=== PATIENT | female | born 1970 | race Caucasian/White ===

== ENCOUNTER 2019-03-31 15:50 | Outpatient (CLI) | payer OTHER, SELFPAY ==
--- NOTE | ~2019-03-31 | MM_ITS ---
EXAMINATION: MM screening ulices BI w jasmina HISTORY: Screening mammogram TECHNIQUE: Craniocaudal and mediolateral oblique 3-D tomosynthesis images were obtained and synthetic 2-D images were generated. CAD analysis was submitted and interpreted. COMPARISON: No prior mammogram is available for comparison at this institution. BREAST PARENCHYMAL COMPOSITION: There are scattered areas of fibroglandular density. FINDINGS: Status post bilateral augmentation mammoplasty There is no evidence of suspicious mass, dante cification, or architectural distortion to suggest malignancy in either breast.. IMPRESSION: 1. No mammographic evidence of malignancy. 2. Recommend routine screening mammography in one year. BI-RADS Category 1: Negative Reviewed, dictated and finalized at location A. ING SALES LEADER
== END 2019-03-31 15:51 | disposition home or self-care (01) ==
LOC: ANHIMG 15:55
PROVIDERS: PCP Family Medicine; Visit Provider Family Medicine
DX: Z12.31 Encounter for screening mammogram for malignant neoplasm of breast (principal)
CPT/HCPCS: 77063; 77067

== ENCOUNTER 2019-09-19 07:44 | Outpatient (CLI) | payer OTHER, SELFPAY ==
--- NOTE | 2019-09-19 09:00 | EST_ITS ---
Patient Info Name: Carmen Sims Age: 49 years : 1970 Gender: Female Ht: 64 in Wt: 239 lbs BSA: 2.27 m2 HR: 66 bpm BP: 113 / 78 mmHg Heart Rhythm: Sinus Rhythm Technical Quality: Excellent Exam Date: 09/19/2019 9:11 AM Exam Location: [facility], [place] Patient Status: Outpatient Admit Date: 09/19/2019 Staff Ordering Physician: Ayad Turner MD Attending Provider: Ayad Turner MD Exercise Technologist: Alisha Whiting CRT Exercise Physician: Donna Mitchell CEP Exam Type: CA stress hakeem w NM Study Info Indications AbnormalEKG - A nuclear stress test was performed. Summary 1. 1. Abnormal lexiscan stress test for ischemic ST changes by ECG criteria. 2. 2. Stable hemodynamics throughout the test. 3. 3. Nuclear scan to follow and will be reported separately. Please correlate with it. Protocol: LEXISCAN Stress ECG Details Stage: REST Duration (min): 1 min : 26 sec HR (bpm): 65 SBP (mmHg): 113 DBP (mmHg): 78 Stage: REST Duration (min): 5 min : 7 sec HR (bpm): 63 SBP (mmHg): 113 DBP (mmHg): 78 Stage: STAGE 1 Duration (min): 0 min : 21 sec HR (bpm): 67 SBP (mmHg): 113 DBP (mmHg): 78 Stage: RECOVERY Duration (min): 0 min : 38 sec HR (bpm): 103 SBP (mmHg): 113 DBP (mmHg): 78 Stage: RECOVERY Duration (min): 1 min : 38 sec HR (bpm): 94 SBP (mmHg): 138 DBP (mmHg): 78 Stage: RECOVERY Duration (min): 2 min : 38 sec HR (bpm): 94 SBP (mmHg): 135 DBP (mmHg): 80 Stage: RECOVERY Duration (min): 3 min : 38 sec HR (bpm): 88 SBP (mmHg): 140 DBP (mmHg): 78 Stage: RECOVERY Duration (min): 4 min : 38 sec HR (bpm): 81 SBP (mmHg): 140 DBP (mmHg): 78 Stage: RECOVERY Duration (min): 5 min : 38 sec HR (bpm): 79 SBP (mmHg): 129 DBP (mmHg): 82 Stage: RECOVERY Duration (min): 6 min : 3 sec HR (bpm): 79 SBP (mmHg): 127 DBP (mmHg): 80 Rest HR: 63 bpm Peak HR: 103 bpm Rest Sys BP: 113 mmHg Peak Sys BP: 140 mmHg Max Pred HR: 173 bpm % Max Pred HR: 60 % Target HR: 147 bpm Max RPP: 14,420 bpm*mmHg Termination Reason: Completion of Protocol Cardiac Symptoms: Chest pain, Dyspnea Total Time: 0 min : 21 sec Rest Haywood BP: 78 mmHg Peak Haywood BP: 78 mmHg Total Dose: 0.4 mg Resting ECG Normal sinus rhythm with borderline T wave in ant/inf leads. Abnormal EKG. Stress ECG ST depression 1-2 mm in II, III, avF, V4-V6. Arrhythmias Occasional PVCs. None. Report Signatures
== END 2019-09-19 07:45 | disposition home or self-care (01) ==
PROVIDERS: PCP Family Medicine; Visit Provider Family Medicine
DX: R94.31 Abnormal electrocardiogram [ECG] [EKG] (principal)
CPT/HCPCS: 78452; 93017; A9502; J2785

== ENCOUNTER 2019-09-27 07:37 | Outpatient (CLI) | payer OTHER, SELFPAY ==
--- NOTE | 2019-09-27 07:44 | ECHO_ITS ---
Patient Info Name: Carmen Sims Age: 49 years : 1970 Gender: Female Ht: 62 in Wt: 240 lbs BSA: 2.25 m2 HR: 73 bpm BP: 128 / 90 mmHg Technical Quality: Good Exam Date: 09/27/2019 8:09 AM Exam Location: [facility] Patient Status: Outpatient Admit Date: 09/27/2019 Staff Ordering Physician: Brandon Wu DO Attending Provider: Brandon Wu DO Referring Physician: Bryce FONG; Exam Type: CA echo dop color flow w con Study Info Indications R06.00 - Dyspnea, unspecified Complete two-dimensional, color flow and Doppler transthoracic echocardiogram is performed with contrast to opacify the left ventricle and to improve the deliniation of the left ventricle endocardial borders. Contrast/Agitated Saline Contrast/Ag. Saline: Definity Amount: 1.00 ml Administered By: Jose Juan Madrid, RN New IV Access: Dorsum of Hand and Left Site Condition: IV removed Summary 1. Left ventricular chamber dimension is normal. 2. Definity contrast administered improved wall motion interpretation. 3. Left ventricular systolic function is normal, estimated at 55-60%. 4. The left ventricular diastolic function is grade II diastolic dysfunction. 5. E/e' 6 is not elevated. 6. Global longitudinal strain is abnormal at -14.4%. 7. Bowing of interatrial septum to right. No shunt noted by color doppler. 8. No pulmonary hypertension, estimated pulmonary arterial systolic pressure is 29 mmHg. Left Ventricle Definity contrast administered improved wall motion interpretation. Global longitudinal strain is abnormal at -14.4%. E/e' 6 is not elevated. Left ventricular chamber dimension is normal. Left ventricular systolic function is normal, estimated at 55-60%. The left ventricular diastolic function is grade II diastolic dysfunction. Right Ventricle Right ventricular chamber dimension is normal. Right ventricular systolic function is normal. Left Atria Left atrial chamber dimension is normal. Right Atria Right atrial chamber dimension is normal. Atrial Septum Bowing of interatrial septum to right. No shunt noted by color doppler. Aortic Valve The aortic valve is trileaflet. There is no aortic valve stenosis. There is no aortic valve regurgitation. Pulmonic Valve There is no pulmonic regurgitation. Mitral Valve There is no mitral valve stenosis. There is no mitral valve regurgitation. Tricuspid Valve There is no tricuspid valve regurgitation. No pulmonary hypertension, estimated pulmonary arterial systolic pressure is 29 mmHg. Pericardium/Pleural There is no pericardial effusion. Inferior Vena Cava Normal inferior vena cava with >50% collapse upon inspiration consistent with normal right atrial pressure, 5 mmHg. Aorta The aortic root size at the sinus of Valsalva is normal. Left Ventricular Outflow Tract Name Value Normal LVOT 2D LVOT Diameter 1.85 cm LVOT Doppler LVOT Peak Gradient 5 mmHg LVOT Mean Gradient 3 mmHg LVOT VTI 24.37 cm LVOT
== END 2019-09-27 07:38 | disposition home or self-care (01) ==
PROVIDERS: PCP Family Medicine; Visit Provider Internal Medicine Cardiovascular Disease
DX: R06.00 Dyspnea, unspecified (principal)
CPT/HCPCS: C8929

== ENCOUNTER 2019-10-03 00:41 | Outpatient (CLI) | payer OTHER, SELFPAY ==
[2019-10-03 20:23] LABS: SARS-CoV-2 RNA PCR Negative
== END 2019-10-03 00:42 | disposition home or self-care (01) ==
LOC: ANHCOVIDDT 00:42
PROVIDERS: PCP Family Medicine; Visit Provider Specialist
DX: Z01.812 Encounter for preprocedural laboratory examination (principal); Z20.828 Contact with and (suspected) exposure to other viral communicable diseases
CPT/HCPCS: 87635; C9803; U0003

== ENCOUNTER 2019-10-05 01:27 | Day surgery (SDC) | payer OTHER, SELFPAY ==
[2019-10-04 15:29] VITALS: BMI 44.3
[2019-10-05] VITALS (13 sets, daily range): BP systolic 111–132; BP diastolic 66–100; PULSE 51–82; RESP 14–16; TEMP 36.6; O2SAT 98–100
[2019-10-05 09:04] LABS: Basophils Percent Auto 0.3 % (0.2-1.2); Eosinophils Absolute Auto 0.2 K/mm3 (0-0.3); Eosinophils Percent Auto 3.1 % (0-4.4); Hematocrit 43.5 % (37.0-47.0); Hemoglobin 14.4 g/dL (12.0-15.0); Immature Granulocyte Absolute 0.02 K/mm3 (0.00-0.031); Immature Granulocyte Percent A 0.3 % (0-0.5); Lymphocytes Absolute Auto 1.45 K/mm3 (0.9-3.2); Lymphocytes Percent Auto 24.9 % (18.3-44.2); Mean Corpuscular HGB Conc 33.1 g/dl (32-36); Mean Corpuscular Hemoglobin 30.3 pg (26-34); Mean Corpuscular Volume 91.4 fl (80-100); Mean Platelet Volume 9.7 fl (7.4-10.4); Monocytes Absolute Auto 0.5 K/mm3 (0.1-0.6); Monocytes Percent Auto 8.2 % (2.6-8.5); Neutrophils Absolute Auto 3.7 K/mm3 (1.3-6.7); Neutrophils Percent Auto 63.2 % (45.5-73.1); Platelet Count Result 253 k/mm3 (150-375); Red Blood Count 4.76 M/mm3 (4.2-5.4); Red Cell Distribution Width 13.4 % (11.5-14.5); White Blood Count 5.8 K/mm3 (4.5-10.0)
[2019-10-05 09:14] LABS: Prothrombin Time 12.8 Seconds (11.1-14.7)
[2019-10-05 09:16] LABS: Anion Gap 9 mmol/L (8-16); Blood Urea Nitrogen 12 mg/dL (7-17); Calcium 8.9 mg/dL (8.4-10.2); Carbon Dioxide 28 mmol/L (22-30); Chloride 102 mmol/L (98-107); Estimated CRCL calculation 100 ml/min; Estimated Glomerular Filt Rate > 60; Glucose 99 mg/dL (65-105); Sodium 139 mmol/L (137-145)
--- NOTE | 2019-10-05 12:45 | P.PCNCC_ITS ---
Cardiac Cath Procedure Note Date of procedure:: 10/05/19 Performing physician:: Tremaine Peterson MD Indication:: atypical chest pain abnormal stress test morbid obesity Brief clinical history:: 49-year-old woman who is morbidly obese with BMI of 44.4. She has been having chest discomfort intermittently for about 10 weeks. Stress testing was electrocardiographically abnormal prompting the recommendation for an angiogram. Procedure Procedure performed:: Left heart catheterization with left ventriculography and coronary angiography Sedation/Medication given:: fentanyl 50 mg Versed 2 mg case start time 12:27 p.m. case end time 12:41 p.m. sedation provided by Christine Shipman RN, trained observer Access site:: right femoral artery Estimated blood loss:: 15-20 cc Procedure note:: patient was brought to the cardiac catheterization lab in postabsorptive state the right femoral triangle was prepared in the normal fashion anesthesia was provided with 1% lidocaine infiltrated locally. Using the modified Seldinger technique a 5 Mauritian sheath was placed into the right femoral artery after this left heart catheterization was carried out. A 5 Mauritian pigtail catheter was used to measure left-sided hemodynamics and injected LV g in the BALTAZAR projection. After this I withdrew the pigtail catheter and injected the left coronary artery with standard 5 Mauritian FL4 catheter. After this the right coronary was injected using a standard 5 Mauritian JR4 catheter. The cineangiograms were reviewed. An angiogram was done of the femoral artery through the sheath and it was determined we would pull the sheath manually. She left the medical laboratory technician in stable condition there were no signs of any procedural complications and no evidence of any groin hematoma. Findings:: Hemodynamics: Central aortic pressure is 18/62 left ventricle 118/0 end-diastolic pressure 6. There is no gradient upon pullback across the aortic valve. The left ventricle is normal in size all segments contract adequately the global ejection fraction is visually estimated to be 50% the left main coronary is widely patent the LAD is a large caliber vessel extending down to around the apex the LAD and its branches are smooth and angiographically normal the circumflex is a moderate caliber artery giving rise to the marginal branches and a posterior branch. The circumflex system is smooth and angiographically normal. The right coronary artery is large in caliber dominant to the posterior circulation. Right coronary bifurcates early in the 2nd portion. There was some catheter-induced spasm in the proximal RCA other than this the artery was angiographically normal. Upon with backing off of the catheter the area of spasm was immediately resolved. Conclusion:: 1. Right coronary dominant circulation with no angiographic evidence of coronary disease 2. preserved left ventricular systolic function 3. false-positive stress test Tremaine Peterson MD [facility]
--- NOTE | 2019-10-05 13:15 | SUR.PHASEII ---
1313-5F sheath pulled by Kike Orourke RN. Groin soft and non-tender, no evidence of bleeding or hematoma noted. Will continue to monitor.
[2019-10-05] MEDS: FAMOTIDINE 20 MG TABLET 40 MG PO (15:31)
[2019-10-05] MEDS: PANTOPRAZOLE 40 MG TABLET PO (15:32)
--- NOTE | 2019-10-05 18:54 | SUR.PHASEII ---
1745-pt up to the chair. No distress noted. Groin soft and non-tender, no evidence of bleeding or hematoma noted before or after rising. Strong right pedal pulse noted. Will continue to monitor.
--- NOTE | 2019-10-05 18:55 | SUR.PHASEII ---
1845-pt given D/C orders and instructions. Questions answered and verbalized understanding. AOx4. Groin soft and non-tender, no evidence of bleeding or hematoma noted. Strong right pedal pulses noted. Taken via wheelchair to waiting vehicle. No evidence of distress noted or verbalized at time of departure.
== END 2019-10-05 18:45 | disposition home or self-care (01) ==
PROVIDERS: PCP Family Medicine; Visit Provider Specialist
PROC: 4A023N7 Measurement of Cardiac Sampling and Pressure, Left Heart, Percutaneous Approach (ICD-10-PCS; CPT 93452; principal; 2019-10-05 10:00)
DX: Z01.810 Encounter for preprocedural cardiovascular examination (principal); R94.39 Abnormal result of other cardiovascular function study; R07.89 Other chest pain; R06.00 Dyspnea, unspecified; E66.01 Morbid (severe) obesity due to excess calories; Z68.41 Body mass index [BMI] 40.0-44.9, adult
CPT/HCPCS: 36415; 80048; 85025; 85610; 93458; A9270; C1887; C1894; J0461; J1644; J2250; J3010; J7040

== ENCOUNTER 2019-11-01 10:00 | Emergency (ER) | payer OTHER, SELFPAY ==
--- NOTE | ~2019-11-01 | XR_ITS ---
EXAMINATION: XR chest 2V 11/01/2019 11:18 INDICATION: Chest pain PROCEDURE: 2 view chest COMPARISON: 06/13/2010 FINDINGS: The lungs are clear. The cardiomediastinal silhouette is within normal limits. There are no pleural effusions. There is no pneumothorax suspected. IMPRESSION: 1: NO ACUTE CARDIOPULMONARY DISEASE. Reviewed, dictated and finalized at location B.
--- NOTE | ~2019-11-01 | US_ITS ---
EXAMINATION: US arterial duplex LE RT EXAM DATE: 11/01/2019 11:18 INDICATION: Right groin pain, states recent catheterization. TECHNIQUE: Multiple grayscale and Doppler images of the right inguinal artery and vein were obtained (by a technologist who performed the scan) and subsequently reviewed. Correlation is made to venous u ltrasound same date. FINDINGS: Scanning in the right inguinal region demonstrates normal triphasic high resistance, femoral arterial and femoral arterial Doppler waveforms. There is no pseudoaneurysm. Normal venous Doppler signal. Th ere is a small right inguinal lymph node measuring 1.8 x 0.5 x 0.9 cm. IMPRESSION: 1. Unremarkable right groin ultrasound exam. Reviewed, dictated and finalized at location A.
--- NOTE | ~2019-11-01 | US_ITS ---
EXAMINATION: US venous doppler LE RT EXAM DATE: 11/01/2019 11:18 INDICATION: Right leg pain after catheterization. TECHNIQUE: Multiple grayscale, color flow and Doppler images of the right lower extremity deep venous system were obtained and reviewed. There is no prior study for comparison. FINDINGS: The right common femoral, femoral and profunda veins demonstrate normal color flow, respira tory variation, augmentation and compressibility. Compressibility, color flow confirmed within the r ight popliteal, posterior tibial, peroneal, and greater saphenous veins. IMPRESSION: 1. No right lower extremity deep venous thrombosis. Reviewed, dictated and finalized at location A.
[2019-11-01 10:10] VITALS: BP 150/60; PULSE 111; RESP 22; TEMP 38.1; O2SAT 97
--- NOTE | 2019-11-01 10:14 | ED.EXTPRO ---
HPI - Extremity Problem General Chief complaint: Shortness of Breath/Dyspnea Stated complaint: SOB Pain in groin Time Seen by Provider: 11/01/19 10:30 Source: patient Mode of arrival: ambulatory Limitations: no limitations History of Present Illness HPI Narrative: 49-year-old woman comes in today complaining chest pain and shortness of breath. She states that she has been being evaluated lately for upcoming hiatal hernia surgery which included a stress test and a catheterization. He states that the chest discomfort shortness breath got worse in the last day or 2 and she is also complaining of some pain in her right groin. She noticed a lump there. She underwent cardiac catheterization 1 month ago After which she was cleared for surgery. She states that shortness of breath is worse with exertion but the chest pain is not. She denies nausea, lightheadedness, vomiting, syncope, cough, cold symptoms, and sick contacts. She states that she recently had a negative [id number]-[id number]-2 test. She takes 40 of pantoprazole twice daily for her chest symptoms. MD Complaint: extremity pain Onset (ago): day(s) Pain Consistency: constant Location: right and lower extremity (groin) Radiation: none Exacerbating factors: walking and palpation Associated symptoms: chest pain and shortness of breath Context: recent surgery/procedure Related Data Home Medications Medication Instructions Recorded Confirmed calcium carbonate 500 mg calcium 500 mg PO BID 09/21/19 11/01/19 (1,250 mg) chewable tablet cyanocobalamin (vitamin B-12) 500 500 mcg NASAL WEEKLY 09/21/19 11/01/19 mcg/spray nasal spray ferrous fumarate 325 mg (106 mg 325 mg PO BID 09/21/19 11/01/19 iron) tablet multivitamin 1 tablet PO BID 09/21/19 11/01/19 pantoprazole 40 mg tablet,delayed 40 mg PO BID tablet 09/21/19 11/01/19 release Allergies Allergy/AdvReac Type Severity Reaction Status Date / Time amoxicillin [From Augmentin] AdvReac Severe hives, Verified 11/01/19 10:29 swollen lip and tongue clavulanic acid AdvReac Severe hives, Verified 11/01/19 10:29 [From Augmentin] swollen lip and tongue erythromycin base AdvReac Severe hives, Verified 11/01/19 10:29 [From Erythrocin] vomiting morphine AdvReac Severe Unknown Verified 11/01/19 10:29 Review of Systems Constitutional: Constitutional: Denies chills, Reports fatigue and Denies fever(s) ENT: Denies dysphagia, Denies nasal congestion and Denies sore throat Cardiovascular: Cardiovascular: Denies chest pain and Denies radiating jaw, neck or arm pain Respiratory: Respiratory: Denies cough, Denies dyspnea and Denies wheezing Gastrointestinal: Gastrointestinal: Denies abdominal pain, Denies diarrhea, Denies nausea and Denies vomiting Genitourinary: Genitourinary: Denies nocturia and Denies dysuria Integumentary/Breasts: Skin/Breast: Denies pruritus, Denies erythema and Denies rash Neurologic: Denies vertigo, Denies dizziness, Denies syncope, Denies focal weakness and Denies numbness Hematologic/Lymphatic: Hematologic/Lymphatic: Denies easy bleeding and Denies easy bruising Allergic/Immunologic: Allergic/Immunologic: Denies lip swelling, Denies throat swelling and Denies tongue swelling PMFSH Surgical History Surgical History H/O: hysterectomy Hx of breast augmentation S/P total knee arthroplasty Status post gastric banding Social History Social History Smoking status: Never smoker Alcohol intake: current Substance use: never Additional living arrangements comments: lives with fiancee Gender identity (if verbalized by the patient): Female Spiritual care concerns: No Exam Const: General: healthy appearing and alert Nutritional Appearance: obese Orientation/consciousness: patient oriented x3 Limitations: no limitations Other: Moderate acute distress
--- NOTE | 2019-11-01 10:16 | ECG_ITS ---
Measurements Intervals [place] Rate: 94 P: 72 TX: 163 QRS: 79 QRSD: 87 T: 45 QT: 354 QTc: 443 Interpretive Statements SINUS RHYTHM INCOMPLETE RIGHT BUNDLE BRANCH BLOCK DELAYED PRECORDIAL R/S TRANSITION LOW QRS VOLTAGE IN PRECORDIAL LEADS T WAVE ABNORMALITY IN ANTEROLATERAL LEADS- CONSIDER ISCHEMIA BASELINE ARTIFACT- II, III, AVL, AVF ABNORMAL ECG Electronically Signed On 11-01-2019 11:04:52 CDT by Brandon Wu D.O.
[2019-11-01] MEDS: MAG HYDROX/ALUMINUM HYD/SIMETH 30 ML, PHENobarb/HYOSCY/ATROPINE/SCOP 32.4 MG, LIDOCAINE... PO (10:43)
[2019-11-01 10:52] LABS: Basophils Absolute Auto 0.03 K/mm3 (0.00-0.10); Basophils Percent Auto 0.5 % (0.0-1.0); Eosinophils Absolute Auto 0.15 K/mm3 (0.02-0.50); Eosinophils Percent Auto 2.4 % (1.0-6.0); Hematocrit 41.2 % (35.0-49.0); Hemoglobin 13.4 g/dL (12.0-15.0); Immature Granulocyte Absolute 0.03 K/mm3 (0.00-0.00); Immature Granulocyte Percent A 0.5 % (0.0-0.0); Lymphocytes Absolute Auto 1.43 K/mm3 (1.10-4.50); Lymphocytes Percent Auto 22.8 % (18.0-42.0); Mean Corpuscular HGB Conc 32.5 g/dL (32.0-36.0); Mean Corpuscular Volume 92.4 fL (78.0-102.0); Mean Platelet Volume 10.1 fl (9.2-11.8); Monocytes Absolute Auto 0.62 K/mm3 (0.10-0.90); Monocytes Percent Auto 9.9 % (2.0-11.0); Neutrophils Percent Auto 63.9 % (50.0-70.0); Platelet Count Result 224 K/mm3 (150-420); Red Blood Count 4.46 M/mm3 (4.20-5.40); Red Cell Distribution Width 13.4 % (11.6-14.4); White Blood Count 6.3 K/mm3 (4.8-10.8)
[2019-11-01 11:08] LABS: BNP < 5.0 pg/mL (0-100)
[2019-11-01 11:09] LABS: Alanine Aminotransferase 48 U/L (14-59); Albumin Level 3.8 g/dL (3.4-5.0); Alkaline Phosphatase 89 U/L (46-116); Anion Gap 12 mmol/L (8-16); Aspartate Amino Transferase 16 U/L (15-37); Bilirubin,Total 0.5 mg/dL (0.00-1.00); Blood Urea Nitrogen 16 mg/dL (7-18); Calcium 9.4 mg/dL (8.5-10.1); Carbon Dioxide 27 mmol/L (21-32); Chloride 103 mmol/L (98-108); Estimated CRCL calculation 79 ml/min; Estimated Glomerular Filt Rate > 60; Glucose 110 mg/dL (70-99); Osmolality Calculated 296 mOsm/kg (285-295); Potassium 3.9 mmol/L (3.5-5.1); Sodium 142 mmol/L (136-145); Total Protein 7.6 g/dL (6.4-8.2)
[2019-11-01 11:10] LABS: D Dimer 0.42 mg/L (0.19-0.50); Partial Thromboplastin Time 26.6 SEC (22.3-31.6); Prothrombin Time 10.7 Seconds (9.64-11.0); Troponin I < 0.02 ng/mL (0.00-0.056)
[2019-11-01 11:10] LABS: CRP 2.3 mg/dL (0.0-0.9)
[2019-11-01 11:12] LABS: Lactic Acid Reflex 1.5 mmol/L (0.4-2.0)
[2019-11-01 11:24] VITALS: BP 169/94; PULSE 72; RESP 16; O2SAT 95
[2019-11-01 11:51] LABS: Add Urine Microscopic? NO; Appearance Urine Clear (Clear); Bilirubin Urine Negative (Negative); Blood Urine Negative (Negative); Glucose Urine UA Negative (Negative); Ketones Urine Negative (Negative); Leukocyte Esterase Ur Negative (Negative); Nitrate Urine Negative (Negative); Protein Urine Negative (Negative); Specific Grav Ur 1.015 (1.010-1.020); Urobilinogen Urine 0.2 mg/dL (0.2-1.0)
[2019-11-01 11:56] LABS: Color Urine Straw (Yellow); RBC Urine 0-2 /hpf (0-2); WBC Urine None seen /hpf (0-3)
[2019-11-01 11:57] LABS: Squamous Epithelial Cell Urine Rare /hpf (Few)
[2019-11-01 12:10] VITALS: BP 114/37; TEMP 36.9
--- NOTE | 2019-11-01 12:23 | PC.NURSE ---
[employer] DOWNTIME - DISCHARGE PAPERS TO BE MAILED
== END 2019-11-01 12:10 | disposition home or self-care (01) ==
PROVIDERS: Emergency Provider Emergency Medicine; PCP Family Medicine
DX: R06.00 Dyspnea, unspecified (principal); R10.30 Lower abdominal pain, unspecified; R50.9 Fever, unspecified
CPT/HCPCS: 36415; 71046; 80053; 81003; 83605; 83880; 84484; 85025; 85380; 85610; 85730; 86140; 87040; 93005; 93926; 93971; 99284; A9270

== ENCOUNTER 2019-12-06 07:22 | Outpatient (CLI) | payer OTHER, SELFPAY ==
[2019-12-06 19:02] LABS: SARS-CoV-2 RNA PCR Negative
== END 2019-12-06 07:23 | disposition home or self-care (01) ==
PROVIDERS: PCP Family Medicine; Visit Provider Internal Medicine Critical Care Medicine
DX: Z01.812 Encounter for preprocedural laboratory examination (principal); Z20.828 Contact with and (suspected) exposure to other viral communicable diseases
CPT/HCPCS: 87635; C9803; U0003

== ENCOUNTER 2019-12-21 11:41 | Outpatient (CLI) | payer OTHER, SELFPAY ==
--- NOTE | ~2019-12-21 | XR_ITS ---
EXAMINATION: XR elbow LT min 3V DATE: 12/21/2019 12:18 INDICATION: Left elbow swelling, mass and lump. TECHNIQUE: Anteroposterior, two oblique and lateral views of the left elbow were obtained. COMPARISON: None. FINDINGS: Alignment is normal. No fracture or joint effusion. Joint spaces are normal. On the lateral projectio n there is a prominent masslike soft tissue density anterior to the left upper arm. IMPRESSION: 1. Prominent masslike soft tissue density anterior to the left upper arm which could represent neopla sm, retracted biceps muscle belly in the setting of distal biceps tendon tear or loculated fluid leroy ection. Correlate clinically and would consider pre and postcontrast enhanced MRI of the left upper l jacy distal upper arm for further evaluation. Reviewed, dictated and finalized at location A. ORY CLERK IMPRESSION: 1. Prominent masslike soft tissue density anterior to the left upper arm which could represent neoplasm, retracted biceps muscle belly in the setting of dista l biceps tendon tear or loculated fluid collection. Correlate clinically and wo uld consider pre and postcontrast enhanced MRI of the left upper lung distal up per arm for further evaluation.
[2019-12-21 12:05] LABS: Basophils Absolute Auto 0.03 K/mm3 (0.00-0.10); Basophils Percent Auto 0.4 % (0.0-1.0); Eosinophils Absolute Auto 0.17 K/mm3 (0.02-0.50); Eosinophils Percent Auto 2.4 % (1.0-6.0); Hematocrit 42.9 % (35.0-49.0); Hemoglobin 13.7 g/dL (12.0-15.0); Immature Granulocyte Absolute 0.02 K/mm3 (0.00-0.00); Immature Granulocyte Percent A 0.3 % (0.0-0.0); Lymphocytes Absolute Auto 1.82 K/mm3 (1.10-4.50); Mean Corpuscular HGB Conc 31.9 g/dL (32.0-36.0); Mean Corpuscular Hemoglobin 29.5 pg (27.0-31.0); Mean Corpuscular Volume 92.3 fL (78.0-102.0); Mean Platelet Volume 9.6 fl (9.2-11.8); Monocytes Absolute Auto 0.53 K/mm3 (0.10-0.90); Monocytes Percent Auto 7.6 % (2.0-11.0); Neutrophils Absolute Auto 4.4 K/mm3 (1.7-7.2); Neutrophils Percent Auto 63.3 % (50.0-70.0); Platelet Count Result 259 K/mm3 (150-420); Red Blood Count 4.65 M/mm3 (4.20-5.40); Red Cell Distribution Width 13.2 % (11.6-14.4)
[2019-12-21 13:32] LABS: Alanine Aminotransferase 43 U/L (14-59); Albumin Level 3.7 g/dL (3.4-5.0); Alkaline Phosphatase 77 U/L (46-116); Anion Gap 12 mmol/L (8-16); Aspartate Amino Transferase 23 U/L (15-37); Bilirubin,Total 0.4 mg/dL (0.00-1.00); Blood Urea Nitrogen 16 mg/dL (7-18); Calcium 8.7 mg/dL (8.5-10.1); Carbon Dioxide 26 mmol/L (21-32); Chloride 105 mmol/L (98-108); Creatine Kinase 49 U/L (26-192); Estimated Glomerular Filt Rate > 60; Glucose 92 mg/dL (70-99); Osmolality Calculated 297 mOsm/kg (285-295); Potassium 4.2 mmol/L (3.5-5.1); Sodium 143 mmol/L (136-145); Thyroid Stimulating Hormone 2.73 uIU/mL (0.36-3.74); Total Protein 6.6 g/dL (6.4-8.2)
== END 2019-12-21 11:42 | disposition home or self-care (01) ==
LOC: CHSLAB 11:44
PROVIDERS: PCP Family Medicine; Visit Provider Family Medicine
DX: R06.00 Dyspnea, unspecified (principal); K29.70 Gastritis, unspecified, without bleeding; G60.9 Hereditary and idiopathic neuropathy, unspecified; M79.18 Myalgia, other site; M79.9 Soft tissue disorder, unspecified
CPT/HCPCS: 36415; 73080; 80053; 82550; 84443; 85025; 86769

== ENCOUNTER 2019-12-24 09:10 | Outpatient (CLI) | payer OTHER, SELFPAY ==
--- NOTE | ~2019-12-24 | MR_ITS ---
EXAMINATION: MR elbow LT wo/w con DATE: 12/24/2019 10:12 INDICATION: Left upper limb mass. TECHNIQUE: Magnetic resonance imaging (MRI) of the left elbow was performed without intravenous contr ast. Sequences included axial T1-weighted FSE and T1-weighted FS FSE. The patient ended the exam due to claustrophobia. COMPARISON: Left elbow radiograph 01/05 FINDINGS: Bone alignment is normal. No fracture. The biceps tendon and brachialis tendon are normal. There is n o abnormal mass. Skin markers are noted volar and ulnar to distal humerus. There is mild olecranon bu rsitis. IMPRESSION: 1. No abnormal mass in the patient's area of concern. 2. The patient ended the exam early due to claustrophobia, which decreases sensitivity. Reviewed, dictated and finalized at location A. MAKER IMPRESSION: 1. No abnormal mass in the patient's area of concern. 2. The patient ended the exam early due to claustrophobia, which decreases sens itivity.
== END 2019-12-24 09:11 | disposition home or self-care (01) ==
LOC: CHSIMG 09:11
PROVIDERS: PCP Family Medicine; Visit Provider Family Medicine
DX: R22.32 Localized swelling, mass and lump, left upper limb (principal)
CPT/HCPCS: 73223

== ENCOUNTER 2020-01-04 10:20 | Outpatient (CLI) | payer OTHER, SELFPAY ==
--- NOTE | ~2020-01-04 | US_ITS ---
EXAMINATION: US soft tissue UE LT DATE: 01/04/2020 10:44 INDICATION: Left arm mass near the elbow TECHNIQUE: Multiple grayscale and Doppler ultrasound images of the region of concern at the anterior distal left upper arm near the elbow were obtained. COMPARISON: Radiograph dated 12/21/2019 and MRI dated 12/24/2019 FINDINGS: Normal appearance to the subcutaneous fat and underlying musculature at the region of concern. No abn ormal masses or fluid collections identified. The soft tissue density at the anterior left upper arm seen on the initial radiographs and compared with the MRI appears to correspond to the biceps brachii muscle belly which appears to taper more abruptly than typical with the arm in the flexed position b ut without evident abnormality or distal tendon tear most likely reflects normal anatomic variation. No discrete lipoma or other abnormal masses or fluid collections evident on the prior MRI. IMPRESSION: 1. On both the current study as well as utilizing additional information from both the prior radiogra ph and MRI there is no lipoma or other abnormal masses or fluid collections identified at the region of concern. Reviewed, dictated and finalized at location H. LUTION AGENT IMPRESSION: 1. On both the current study as well as utilizing additional information from b oth the prior radiograph and MRI there is no lipoma or other abnormal masses or fluid collections identified at the region of concern.
== END 2020-01-04 10:21 | disposition home or self-care (01) ==
LOC: CHSIMG 10:22
PROVIDERS: PCP Family Medicine; Visit Provider Family Medicine
DX: R22.32 Localized swelling, mass and lump, left upper limb (principal)
CPT/HCPCS: 76882

== ENCOUNTER 2020-01-31 08:27 | Outpatient (CLI) | payer OTHER, SELFPAY ==
--- NOTE | 2020-03-19 12:27 | WPDHOMESLEEP ---
Sleep Study - Home Unattended Date of Study: 01/31/20 Ordering Provider: Ayad Turner MD Interpreting Physician: Amairani Knight MD Home Sleep Study Type: Watch PAT Height: 1.57 m Weight: 104.78 kg Body Mass Index: 42.2 Neck Circumference (inches): 14.5 Simms: 9 Reason for Sleep Study Loud snoring Sleep History Carmen Sims is a 49-year-old female with frequent snoring which is loud enough that others complain about it. She constantly snores. She occasionally awakens at night with heartburn, belching or coughing. She rarely awakens from sleep feeling short of breath. She occasionally has trouble sleeping with a cold. She never wakes up gasping for breath at night. She rarely has breathing problems at night observed by others, rarely sweats excessively at night and rarely notices her heart pounding or beating irregularly at night. She occasionally falls asleep during the day, never involuntarily, never while driving and never while exerting physical effort. She does not have loss of muscle tone with strong emotion. She rarely has daytime difficulties due to excessive sleepiness. She never feels paralyzed on waking or falling asleep. She frequently has vivid dreamlike scenes upon awakening or falling asleep. She is never afraid to go to sleep. she rarely has nightmares. She occasionally remembers her dreams. She frequently has racing thoughts. She rarely fear feels sad or depressed. She frequently has anxiety. She occasionally has muscular tension. She does not notice parts of her body jerking and she does not kick at night. She frequently has crawling and aching feelings in her legs. She constantly has leg pain during the night. She does not have morning jaw pain. She rarely grinds her teeth as during sleep. She frequently is bothered by pain during the day, is awakened by pain at night, wakes up feeling stiff in the morning with sore achy muscles. She rarely wakes up with pain in the neck and spine. She has bowel disturbances and takes antacids regularly as she frequently has heartburn at night. She occasionally has morning headaches. She frequently awakens feeling refreshed Normal bedtime is 9:30 p.m. falling asleep within 10-15 minutes. She wakes up about 5 times during the night. When she is awake during the night, she will urinate, get a drink, take a pain pill and return to sleep. She may be able to return to sleep within 30 minutes, sometimes it takes as long as 2 hours. She wakes at 6:00 a.m. On weekends she stays awake until 11:00 p.m. and wakes at 7 in the morning. Habits: Never smoked tobacco. Caffeine 1 or 2 per week. Alcohol 1 or 2 drinks weekly. No recreational drugs. [facility] Past Medical History Medical History (Updated 03/19/20 @ 12:52 by Amairani Knight MD) MAGAÑA (dyspnea on exertion) GERD (gastroesophageal reflux disease) Surgical History Surgical History H/O: hysterectomy Hx of breast augmentation S/P total knee arthroplasty Status post gastric banding Social History Social History Smoking status: Never smoker Alcohol intake: current Substance use: never Additional living arrangements comments: lives with ancee Gender identity (if verbalized by the patient): Female Spiritual care concerns: No Medications Home Medications Medication Instructions Recorded Confirmed Type calcium carbonate 500 mg calcium 500 mg PO BID 09/21/19 02/23/20 History (1,250 mg) chewable tablet cyanocobalamin (vitamin B-12) 500 500 mcg NASAL WEEKLY 09/21/19 02/23/20 History mcg/spray nasal spray ferrous fumarate 325 mg (106 mg 325 mg PO BID 09/21/19 02/23/20 History iron) tablet multivitamin 1 tablet PO BID 09/21/19 02/23/20 History pantoprazole 40 mg tablet,delayed 40 mg PO BID tablet 09/21/19 02/23/20 History release Sleep Procedure The sleep study
[2020-03-19 13:02] VITALS: BMI 42.2
== END 2020-01-31 08:28 | disposition home or self-care (01) ==
LOC: ANHCSM 08:27
PROVIDERS: PCP Family Medicine; Visit Provider Family Medicine
DX: G47.33 Obstructive sleep apnea (adult) (pediatric) (principal)
CPT/HCPCS: 95800

== ENCOUNTER 2020-02-13 15:35 | Outpatient (CLI) | payer OTHER, SELFPAY ==
[2020-02-13 16:14] LABS: SARS-CoV-2 Ag Negative (Negative)
== END 2020-02-13 15:36 | disposition home or self-care (01) ==
LOC: CHSLAB 15:37
PROVIDERS: PCP Family Medicine; Visit Provider Family Medicine
DX: Z20.828 Contact with and (suspected) exposure to other viral communicable diseases (principal)
CPT/HCPCS: 87426

== ENCOUNTER 2020-04-12 15:36 | Outpatient (CLI) | payer OTHER, SELFPAY ==
--- NOTE | ~2020-04-12 | XR_ITS ---
XR elbow LT min 3V DATE: 04/12/2020 16:02 INDICATION: Medial epicondylar pain following injury TECHNIQUE: 4 views COMPARISON: 12/2019 left elbow FINDINGS: No fracture or dislocation or joint effusion. No periosteal reaction or bone destruction. IMPRESSION: Negative Reviewed, dictated and finalized at location A. ORATE SALES MANAGER IMPRESSION: Negative
== END 2020-04-12 15:37 | disposition home or self-care (01) ==
LOC: CHSIMG 15:38
PROVIDERS: PCP Family Medicine; Visit Provider Family Medicine
DX: M25.522 Pain in left elbow (principal)
CPT/HCPCS: 73080

== ENCOUNTER 2020-10-24 06:53 | Outpatient (CLI) | payer OTHER, SELFPAY ==
[2020-10-24 07:09] LABS: Basophils Absolute Auto 0.02 K/mm3 (0.00-0.10); Basophils Percent Auto 0.4 % (0.0-1.0); Eosinophils Absolute Auto 0.13 K/mm3 (0.02-0.50); Eosinophils Percent Auto 2.4 % (1.0-6.0); Hematocrit 39.9 % (35.0-49.0); Hemoglobin 13.1 g/dL (12.0-15.0); Immature Granulocyte Absolute 0.01 K/mm3 (0.00-0.00); Immature Granulocyte Percent A 0.2 % (0.0-0.0); Lymphocytes Absolute Auto 1.41 K/mm3 (1.10-4.50); Lymphocytes Percent Auto 26.1 % (18.0-42.0); Mean Corpuscular HGB Conc 32.8 g/dL (32.0-36.0); Mean Corpuscular Hemoglobin 30.2 pg (27.0-31.0); Mean Corpuscular Volume 91.9 fL (78.0-102.0); Mean Platelet Volume 9.5 fl (9.2-11.8); Monocytes Absolute Auto 0.55 K/mm3 (0.10-0.90); Monocytes Percent Auto 10.2 % (2.0-11.0); Neutrophils Absolute Auto 3.3 K/mm3 (1.7-7.2); Neutrophils Percent Auto 60.7 % (50.0-70.0); Platelet Count Result 231 K/mm3 (150-420); Red Blood Count 4.34 M/mm3 (4.20-5.40); Red Cell Distribution Width 13.1 % (11.6-14.4); White Blood Count 5.4 K/mm3 (4.8-10.8)
[2020-10-24 07:33] LABS: Hemoglobin A1C 4.9 % (<5.7)
[2020-10-24 08:17] LABS: Alanine Aminotransferase 30 U/L (14-59); Albumin Level 3.7 g/dL (3.4-5.0); Alkaline Phosphatase 74 U/L (46-116); Anion Gap 7 mmol/L (8-16); Aspartate Amino Transferase 13 U/L (15-37); Bilirubin,Total 0.5 mg/dL (0.00-1.00); Blood Urea Nitrogen 14 mg/dL (7-18); Calcium 8.6 mg/dL (8.5-10.1); Carbon Dioxide 29 mmol/L (21-32); Chloride 106 mmol/L (98-108); Estimated Glomerular Filt Rate > 60; Ferritin 104 ng/mL (8-252); Folic Acid 14.3 ng/mL (8.6->20); Glucose 83 mg/dL (70-99); Iron 90 ug/dL (50-170); Osmolality Calculated 293 mOsm/kg (285-295); Potassium 4.4 mmol/L (3.5-5.1); Sodium 142 mmol/L (136-145); Total Protein 6.6 g/dL (6.4-8.2); Vitamin B12 456 pg/mL (193-986)
[2020-10-24 08:22] LABS: Thyroid Stimulating Hormone Reflex 2.18 u/IU/mL (0.36-3.74)
[2020-10-26 20:42] LABS: Vitamin D 25 Hydroxy 32 ng/mL (30-100)
[2020-10-27 05:54] LABS: Insulin Level Total 3.3 uIU/mL (<=19.6)
== END 2020-10-24 06:54 | disposition home or self-care (01) ==
LOC: CHSLAB 06:55
PROVIDERS: PCP Family Medicine; Visit Provider Surgery
DX: R63.4 Abnormal weight loss (principal); R53.83 Other fatigue; R61 Generalized hyperhidrosis; E66.01 Morbid (severe) obesity due to excess calories; L65.9 Nonscarring hair loss, unspecified; D64.9 Anemia, unspecified; K91.2 Postsurgical malabsorption, not elsewhere classified; Z98.84 Bariatric surgery status; E88.81 Metabolic syndrome and other insulin resistance
CPT/HCPCS: 36415; 80053; 82306; 82607; 82728; 82746; 83036; 83525; 83540; 84425; 84443; 85025

== ENCOUNTER 2020-11-12 13:19 | Outpatient (CLI) | payer OTHER, SELFPAY ==
--- NOTE | ~2020-11-12 | CT_ITS ---
EXAMINATION: CT facial bones wo con DATE: 11/12/2020 13:34 INDICATION: Bruising/lump at right cheek following a fall onto a chair with face 2011 days ago TECHNIQUE: Computed tomography (CT) of the facial bones and maxillofacial region was performed withou t intravenous contrast. Automated exposure control and iterative reconstruction technique were employ ed. Exam dose: 250.48 mGy-cm total exam DLP. COMPARISON: None. FINDINGS: The frontozygomatic sutures, orbital rims and diaz, zygomatic arches, nasal bones, anterio r maxillary spine, maxillary bones, mandible and temporal mandibular joints are intact. Paranasal sin uses are normally developed and aerated, the exception of minimal focal soft tissue thickening within the right frontal sinus. There is asymmetric soft tissue swelling of the right maxillary soft tissues. No subcutaneous emphysema or radiopaque foreign body of the facial bones IMPRESSION: Right maxillary soft tissue thickening likely secondary to hematoma. No facial fracture Reviewed, dictated and finalized at Location A. Reviewed, dictated and finalized at location B. IMPRESSION: Right maxillary soft tissue thickening likely secondary to hematoma . No facial fracture
== END 2020-11-12 13:20 | disposition home or self-care (01) ==
LOC: CHSIMG 13:20
PROVIDERS: PCP Family Medicine; Visit Provider Family Medicine
DX: S00.83XA Contusion of other part of head, initial encounter (principal)
CPT/HCPCS: 70486

== ENCOUNTER 2021-03-30 06:49 | Outpatient (CLI) | payer OTHER, SELFPAY | END 2021-03-30 06:50 | disposition home or self-care (01) | PROVIDERS: PCP Family Medicine; Visit Provider Family Medicine | DX: L98.9 Disorder of the skin and subcutaneous tissue, unspecified (principal) | CPT/HCPCS: 99199 ==

== ENCOUNTER 2021-09-05 11:35 | Outpatient (CLI) | payer OTHER, SELFPAY ==
[2021-09-05 12:41] LABS: SARS-CoV-2 RNA PCR Positive (Negative)
== END 2021-09-05 11:36 | disposition home or self-care (01) ==
LOC: CHSLAB 11:38
PROVIDERS: PCP Family Medicine; Visit Provider Family Medicine
DX: U07.1 COVID-19 (principal)
CPT/HCPCS: C9803; U0003; U0005

== ENCOUNTER 2021-09-09 12:20 | Outpatient (CLI) | payer OTHER, SELFPAY ==
[2021-09-09 13:07] LABS: SARS-CoV-2 Ag Positive (Negative)
== END 2021-09-09 12:21 | disposition home or self-care (01) ==
LOC: CHSLAB 12:23
PROVIDERS: PCP Family Medicine; Visit Provider Family Medicine
DX: U07.1 COVID-19 (principal)
CPT/HCPCS: 87426; C9803

== ENCOUNTER 2021-11-16 08:01 | Outpatient (CLI) | payer OTHER, SELFPAY ==
[2021-11-16 08:21] LABS: Basophils Absolute Auto 0.02 K/mm3 (0.00-0.10); Basophils Percent Auto 0.3 % (0.0-1.0); Eosinophils Absolute Auto 0.17 K/mm3 (0.02-0.50); Hematocrit 43.5 % (35.0-49.0); Hemoglobin 14.2 g/dL (12.0-15.0); Immature Granulocyte Absolute 0.01 K/mm3 (0.00-0.00); Immature Granulocyte Percent A 0.2 % (0.0-0.0); Lymphocytes Absolute Auto 1.62 K/mm3 (1.10-4.50); Lymphocytes Percent Auto 28.2 % (18.0-42.0); Mean Corpuscular HGB Conc 32.6 g/dL (32.0-36.0); Mean Corpuscular Hemoglobin 30.1 pg (27.0-31.0); Mean Corpuscular Volume 92.2 fL (78.0-102.0); Monocytes Absolute Auto 0.57 K/mm3 (0.10-0.90); Monocytes Percent Auto 9.9 % (2.0-11.0); Neutrophils Absolute Auto 3.4 K/mm3 (1.7-7.2); Neutrophils Percent Auto 58.4 % (50.0-70.0); Platelet Count Result 233 K/mm3 (150-420); Red Blood Count 4.72 M/mm3 (4.20-5.40); White Blood Count 5.8 K/mm3 (4.8-10.8)
[2021-11-16 08:32] LABS: Hemoglobin A1C 4.9 % (<5.7)
[2021-11-16 09:13] LABS: Alanine Aminotransferase 31 U/L (14-59); Albumin Level 3.9 g/dL (3.4-5.0); Alkaline Phosphatase 72 U/L (46-116); Anion Gap 6 mmol/L (8-16); Aspartate Amino Transferase 16 U/L (15-37); Bilirubin,Total 0.7 mg/dL (0.00-1.00); Blood Urea Nitrogen 11 mg/dL (7-18); Calcium 9.3 mg/dL (8.5-10.1); Carbon Dioxide 29 mmol/L (21-32); Chloride 105 mmol/L (98-108); Cholesterol 152 mg/dL (0-200); Estimated Glomerular Filt Rate > 60; Ferritin 131 ng/mL (8-252); Folic Acid > 20.0 ng/mL (8.6->20); Glucose 91 mg/dL (70-99); HDL Direct 51 mg/dL (40-60); Iron 96 ug/dL (50-170); LDL Cholesterol Calculated 89 mg/dL (<130); Osmolality Calculated 289 mOsm/kg (285-295); Potassium 4.2 mmol/L (3.5-5.1); Sodium 140 mmol/L (136-145); Thyroid Stimulating Hormone Reflex 1.78 u/IU/mL (0.36-3.74); Total Protein 7.5 g/dL (6.4-8.2); Triglycerides 58 mg/dL (0-150); Vitamin B12 674 pg/mL (193-986)
[2021-11-19 12:17] LABS: Vitamin D 25 Hydroxy 31 ng/mL (30-100)
[2021-11-20 09:32] LABS: Vitamin B1 11 nmol/L (8-30)
== END 2021-11-16 08:02 | disposition home or self-care (01) ==
LOC: CHSLAB 08:03
PROVIDERS: PCP Family Medicine; Visit Provider Surgery
DX: R63.4 Abnormal weight loss (principal); E88.81 Metabolic syndrome and other insulin resistance; Z98.84 Bariatric surgery status; E66.01 Morbid (severe) obesity due to excess calories; Z13.818 Encounter for screening for other digestive system disorders; K91.2 Postsurgical malabsorption, not elsewhere classified
CPT/HCPCS: 36415; 80053; 80061; 82306; 82607; 82728; 82746; 83036; 83540; 84425; 84443; 85025

== ENCOUNTER 2022-06-15 02:29 | Emergency (ER) | payer OTHER, SELFPAY ==
--- NOTE | ~2022-06-15 | CT_ITS ---
EXAMINATION: CT chest abdomen pelvis w con DATE: 06/15/2022 05:02 INDICATION: Left flank pain TECHNIQUE: Transaxial computed tomographic images of the chest, abdomen, and pelvis were obtained aft er the administration of 100 cc of Omnipaque 350 intravenous contrast. The dose-length product (DLP) was 804.36 mGy-cm. Automated exposure control and iterative reconstruction technique were employed. COMPARISON: None FINDINGS: CHEST CT: There is mild dependent atelectasis. No pleural effusion or pneumothorax. The lungs are free of focal airspace opacities. No pathologically enlarged thoracic lymph nodes are identified. The heart size i s normal. Breast implants are noted. ABDOMEN/PELVIS CT: Changes of gastric sleeve procedure are noted. There appears to be mild wall thickening of the gastri c antrum. The liver, spleen, pancreas, gallbladder, and adrenal glands are normal. The kidneys are un remarkable. No stones are identified in the kidneys, ureters, or bladder. No hydronephrosis or hydrou reter. No pathologically enlarged abdominal or pelvic lymph nodes are identified. No free intraperito chandan gas or evidence of bowel obstruction. There is mild lumbar spondylosis. IMPRESSION: 1. No urolithiasis identified. No hydronephrosis or hydroureter. 2. Possible mild gastritis of the antrum. 3. No acute findings of the thorax. Reviewed, dictated and finalized at location F.
[2022-06-15 03:03] VITALS: BP 133/88; PULSE 78; RESP 19; TEMP 36.3; O2SAT 78
--- NOTE | 2022-06-15 03:33 | ED.GENADULT ---
HPI - General Adult General Chief complaint: Unspecified Stated complaint: Left Flank Pain History of Present Illness HPI narrative: 52yo woman h/o gastric sleeve presents with left flank pain wrapping around under the left breast, constant for the past 4 days. No fevers, chills. +nausea. No diarrhea or dysuria. Related Data Home Medications Medication Instructions Recorded Confirmed pantoprazole 40 mg tablet,delayed 40 mg PO BID 09/21/19 06/15/22 release (Protonix) phentermine 15 mg capsule 15 mg PO BID 06/15/22 06/15/22 semaglutide (weight loss) 2.4 2.4 mg subcut WEEKLY 06/15/22 06/15/22 mg/0.75 mL subcutaneous pen injector (Wegovy) Allergies Allergy/AdvReac Type Severity Reaction Status Date / Time amoxicillin [From Augmentin] AdvReac Severe hives, Verified 02/23/20 14:40 swollen lip and tongue clavulanic acid AdvReac Severe hives, Verified 02/23/20 14:40 [From Augmentin] swollen lip and tongue erythromycin base AdvReac Severe hives, Verified 02/23/20 14:40 [From Erythrocin] vomiting morphine AdvReac Severe Unknown Verified 02/23/20 14:40 Review of Systems Review of Systems: All systems reviewed & are unremarkable except as noted in HPI and below Constitutional: Constitutional: Denies chills and Denies fever(s) Cardiovascular: Cardiovascular: Denies chest pain Respiratory: Respiratory: Denies dyspnea PMF Past Medical History Medical History MAGAÑA (dyspnea on exertion) GERD (gastroesophageal reflux disease) Surgical History Surgical History H/O: hysterectomy Hx of breast augmentation S/P total knee arthroplasty Status post gastric banding Social History Social History Smoking status: Never smoker Alcohol intake: current Alcohol use details: pt states she is a social drinker Substance use: never Living arrangements: other Additional living arrangements comments: lives with fiancee Gender identity (if verbalized by the patient): Female Spiritual care concerns: No Exam Const: General: healthy appearing; No comfortable Orientation/consciousness: patient oriented x3 Resp: Effort & Inspection: normal respiratory effort and not labored Auscultation: clear to auscultation bilaterally Cardio: Rate: regular rate Rhythm: regular rhythm GI: GI Palp: No abdominal tenderness Skin: General skin exam: normal color, no jaundice and no pallor Course Vital Signs Vital signs: Vital Signs Temperature 36.3 C L 06/15/22 03:03 Pulse Rate 78 06/15/22 03:03 Respiratory Rate 19 06/15/22 03:03 Blood Pressure 133/88 06/15/22 03:03 Pulse Oximetry 78 L 06/15/22 03:03 Oxygen Delivery Room Air 06/15/22 03:03 Temperature 36.3 C L 06/15/22 03:03 Pulse Rate 78 06/15/22 03:03 Respiratory Rate 19 06/15/22 03:03 Blood Pressure 133/88 06/15/22 03:03 Pulse Oximetry 78 L 06/15/22 03:03 Oxygen Delivery Room Air 06/15/22 03:03 Medical Decision Making MDM Narrative Medical decision making narrative: left flank pain DDx renal colic, gastritis, pancreatitis, colitis. CT to evaluate. Vital Signs Vital Signs: Vital Signs Temperature 36.3 C L 06/15/22 03:03 Pulse Rate 78 06/15/22 03:03 Respiratory Rate 19 06/15/22 03:03 Blood Pressure 133/88 06/15/22 03:03 Pulse Oximetry 78 L 06/15/22 03:03 Oxygen Delivery Room Air 06/15/22 03:03 Temperature 36.3 C L 06/15/22 03:03 Pulse Rate 78 06/15/22 03:03 Respiratory Rate 19 06/15/22 03:03 Blood Pressure 133/88 06/15/22 03:03 Pulse Oximetry 78 L 06/15/22 03:03 Oxygen Delivery Room Air 06/15/22 03:03 Lab Data Lab results reviewed: Yes I reviewed the patient's lab results. Imaging Data Attestation: I personally reviewed and interpreted this imaging
[2022-06-15] MEDS: diphenhydrAMINE HCl INJ 50 MG/ML VIAL IV PUSH (04:02)
[2022-06-15] MEDS: KETOROLAC 30 MG/ML VIAL (*BKC) IV PUSH (04:02)
[2022-06-15] MEDS: SODIUM CHLORIDE 0.9% IV 1,000 ML 999 ML IV CONT (04:03)
[2022-06-15 04:20] LABS: Basophils Absolute Auto 0.04 K/mm3 (0.00-0.10); Basophils Percent Auto 0.7 % (0.0-1.0); Eosinophils Absolute Auto 0.19 K/mm3 (0.02-0.50); Eosinophils Percent Auto 3.4 % (1.0-6.0); Hematocrit 40.7 % (35.0-49.0); Hemoglobin 13.2 g/dL (12.0-15.0); Immature Granulocyte Absolute 0.01 K/mm3 (0.00-0.00); Immature Granulocyte Percent A 0.2 % (0.0-0.0); Lymphocytes Absolute Auto 1.76 K/mm3 (1.10-4.50); Lymphocytes Percent Auto 31.7 % (18.0-42.0); Mean Corpuscular HGB Conc 32.4 g/dL (32.0-36.0); Mean Corpuscular Hemoglobin 29.9 pg (27.0-31.0); Mean Corpuscular Volume 92.3 fL (78.0-102.0); Mean Platelet Volume 9.7 fl (9.2-11.8); Monocytes Absolute Auto 0.55 K/mm3 (0.10-0.90); Monocytes Percent Auto 9.9 % (2.0-11.0); Neutrophils Percent Auto 54.1 % (50.0-70.0); Platelet Count Result 243 K/mm3 (150-420); Red Blood Count 4.41 M/mm3 (4.20-5.40); Red Cell Distribution Width 12.9 % (11.6-14.4); White Blood Count 5.6 K/mm3 (4.8-10.8)
[2022-06-15 04:33] LABS: Alanine Aminotransferase 26 U/L (14-59); Albumin Level 3.8 g/dL (3.4-5.0); Alkaline Phosphatase 66 U/L (46-116); Anion Gap 7 mmol/L (8-16); Aspartate Amino Transferase 16 U/L (15-37); Bilirubin,Total 0.5 mg/dL (0.00-1.00); Blood Urea Nitrogen 13 mg/dL (7-18); Calcium 8.8 mg/dL (8.5-10.1); Carbon Dioxide 31 mmol/L (21-32); Chloride 107 mmol/L (98-108); Estimated CRCL calculation 86 ml/min; Estimated Glomerular Filt Rate > 60; Glucose 87 mg/dL (70-99); Lipase 38 U/L (16-77); Magnesium 2.2 mg/dL (1.8-2.4); Osmolality Calculated 299 mOsm/kg (285-295); Potassium 3.8 mmol/L (3.5-5.1); Sodium 145 mmol/L (136-145); Total Protein 7.7 g/dL (6.4-8.2)
[2022-06-15 04:38] LABS: Lactic Acid Reflex 1.1 mmol/L (0.4-2.0)
[2022-06-15 04:46] LABS: Appearance Urine Clear (Clear); Bilirubin Urine Negative (Negative); Blood Urine Negative (Negative); Color Urine Light Yellow (Yellow); Glucose Urine UA Negative (Negative); Ketones Urine Negative (Negative); Leukocyte Esterase Ur Negative LEU/UL (Negative); Nitrate Urine Negative (Negative); Protein Urine Negative (Negative); Urobilinogen Urine 0.2 mg/dL (0.2-1.0); pH Urine 6.5 (5.0-8.0)
[2022-06-15 04:50] LABS: Add Urine Microscopic? NO
[2022-06-15 04:51] VITALS: O2SAT 96
[2022-06-15] MEDS: HYDROmorphone HCL INJ (*CRX) 2 MG/ML VIAL 0.5 MG IV PUSH (07:01)
[2022-06-15] MEDS: ONDANSETRON INJ 4 MG/2 ML VIAL IV PUSH (07:03)
[2022-06-15 07:31] VITALS: BP 126/58; PULSE 94; RESP 17; TEMP 36.5; O2SAT 97
== END 2022-06-15 07:33 | disposition home or self-care (01) ==
PROVIDERS: Emergency Provider Emergency Medicine; PCP Family Medicine
DX: K29.70 Gastritis, unspecified, without bleeding (principal)
CPT/HCPCS: 36415; 71260; 74177; 80053; 81003; 83605; 83690; 83735; 85025; 96361; 96374; 96375; 99284; J1170; J1200; J1885; J2405; J7030; Q9967

== ENCOUNTER 2022-06-17 10:52 | Outpatient (CLI) | payer OTHER, SELFPAY ==
--- NOTE | ~2022-06-17 | XR_ITS ---
EXAMINATION: XR chest 2V DATE: 06/17/2022 11:17 INDICATION: Chest pain and left flank pain TECHNIQUE: frontal and lateral views of the chest were obtained. COMPARISON: Chest radiograph dated 11/01/2019 FINDINGS: The lungs remain clear with no focal airspace opacities, pulmonary edema, pleural effusion or pneumot horax. The cardiomediastinal silhouette is normal. Bilateral breast implants. Mild lower thoracic lev ocurvature with moderate upper and mild lower thoracic spondylosis. Postoperative changes with surgic al clip in the epigastric region. IMPRESSION: 1. No acute cardiopulmonary disease. Reviewed, dictated and finalized at location L.
[2022-06-17 11:07] LABS: Basophils Absolute Auto 0.03 K/mm3 (0.00-0.10); Basophils Percent Auto 0.6 % (0.0-1.0); Eosinophils Absolute Auto 0.14 K/mm3 (0.02-0.50); Eosinophils Percent Auto 2.8 % (1.0-6.0); Hematocrit 42.2 % (35.0-49.0); Hemoglobin 13.4 g/dL (12.0-15.0); Immature Granulocyte Absolute 0.01 K/mm3 (0.00-0.00); Immature Granulocyte Percent A 0.2 % (0.0-0.0); Lymphocytes Absolute Auto 1.22 K/mm3 (1.10-4.50); Lymphocytes Percent Auto 24.7 % (18.0-42.0); Mean Corpuscular HGB Conc 31.8 g/dL (32.0-36.0); Mean Corpuscular Hemoglobin 29.1 pg (27.0-31.0); Mean Corpuscular Volume 91.5 fL (78.0-102.0); Mean Platelet Volume 9.5 fl (9.2-11.8); Monocytes Absolute Auto 0.45 K/mm3 (0.10-0.90); Monocytes Percent Auto 9.1 % (2.0-11.0); Neutrophils Absolute Auto 3.1 K/mm3 (1.7-7.2); Neutrophils Percent Auto 62.6 % (50.0-70.0); Platelet Count Result 243 K/mm3 (150-420); Red Blood Count 4.61 M/mm3 (4.20-5.40); Red Cell Distribution Width 12.9 % (11.6-14.4); White Blood Count 4.9 K/mm3 (4.8-10.8)
[2022-06-17 11:34] LABS: Alanine Aminotransferase 36 U/L (14-59); Albumin Level 3.9 g/dL (3.4-5.0); Alkaline Phosphatase 64 U/L (46-116); Anion Gap 7 mmol/L (8-16); Aspartate Amino Transferase 24 U/L (15-37); Bilirubin,Total 0.4 mg/dL (0.00-1.00); Blood Urea Nitrogen 10 mg/dL (7-18); Calcium 8.7 mg/dL (8.5-10.1); Carbon Dioxide 31 mmol/L (21-32); Chloride 105 mmol/L (98-108); Creatine Kinase 46 U/L (26-192); Estimated Glomerular Filt Rate > 60; Glucose 86 mg/dL (70-99); Osmolality Calculated 294 mOsm/kg (285-295); Potassium 3.8 mmol/L (3.5-5.1); Sodium 143 mmol/L (136-145); Total Protein 7.5 g/dL (6.4-8.2); Troponin I 5.2 ng/L (0.00-60.4)
[2022-06-17 11:35] LABS: Creatine Kinase MB < 0.50 ng/mL (0.00-5.00)
[2022-06-17 16:23] LABS: Amylase 40 U/L (25-115); Lipase 29 U/L (16-77)
== END 2022-06-17 10:53 | disposition home or self-care (01) ==
LOC: CHSLAB 10:54
PROVIDERS: PCP Family Medicine; Visit Provider Family Medicine
DX: R07.9 Chest pain, unspecified (principal); R10.9 Unspecified abdominal pain
CPT/HCPCS: 36415; 71046; 80053; 82150; 82550; 82553; 83690; 84484; 85025

== ENCOUNTER 2022-06-26 11:47 | Outpatient (CLI) | payer OTHER, SELFPAY ==
--- NOTE | ~2022-06-26 | XR_ITS ---
Thoracic spine: Clinical Indication: Back pain AP and lateral views were performed. No fracture is seen. There is normal alignment of the vertebrae. The intervertebral disc spaces appe ar normal. Paravertebral soft tissues appear normal. Impression: No significant abnormalities noted. Reviewed, dictated and finalized at [facility]. Impression: No significant abnormalities noted.
== END 2022-06-26 11:48 | disposition home or self-care (01) ==
LOC: CHSLAB 11:49
PROVIDERS: PCP Family Medicine; Visit Provider Family Medicine
DX: M54.14 Radiculopathy, thoracic region (principal)
CPT/HCPCS: 72072

== ENCOUNTER 2022-08-29 07:15 | Outpatient (CLI) | payer OTHER, SELFPAY ==
--- NOTE | ~2022-08-29 | US_ITS ---
EXAMINATION: US right upper quadrant DATE: 08/29/2022 07:47 INDICATION: Right upper quadrant pain TECHNIQUE: Multiple grayscale and Doppler ultrasound images of the abdomen were obtained. COMPARISON: None available FINDINGS: The head and body of the pancreas are normal. The pancreatic tail is obscured by bowel gas. The liver is normal with normal echogenicity and echotexture. No surface nodularity. Normal hepatope mike flow in the main portal vein. The gallbladder is normal with no abnormal wall thickening, pericho lecystic fluid or stones. The normal common bile duct measures 4 mm. There was no sonographic Arnold sign. IMPRESSION: 1. Normal sonographic study of the gallbladder. Reviewed, dictated and finalized at location B.
== END 2022-08-29 07:16 | disposition home or self-care (01) ==
LOC: CHSIMG 07:16
PROVIDERS: PCP Family Medicine; Visit Provider Surgery
DX: R10.11 Right upper quadrant pain (principal)
CPT/HCPCS: 76705

== ENCOUNTER 2023-10-05 10:39 | Outpatient (CLI) | payer OTHER, SELFPAY ==
[2023-10-05 10:54] LABS: Basophils Absolute Auto 0.02 K/mm3 (0.00-0.10); Basophils Percent Auto 0.4 % (0.0-1.0); Eosinophils Absolute Auto 0.15 K/mm3 (0.02-0.50); Eosinophils Percent Auto 2.9 % (1.0-6.0); Hematocrit 41.3 % (35.0-49.0); Hemoglobin 13.8 g/dL (12.0-15.0); Immature Granulocyte Absolute 0.02 K/mm3 (0.00-0.00); Immature Granulocyte Percent A 0.4 % (0.0-0.0); Lymphocytes Absolute Auto 1.63 K/mm3 (1.10-4.50); Lymphocytes Percent Auto 31.6 % (18.0-42.0); Mean Corpuscular HGB Conc 33.4 g/dL (32-36); Mean Corpuscular Hemoglobin 30.3 pg (27.0-31.0); Mean Corpuscular Volume 90.8 fL (78.0-102.0); Mean Platelet Volume 9.5 fl (9.2-11.8); Monocytes Absolute Auto 0.56 K/mm3 (0.10-0.90); Monocytes Percent Auto 10.9 % (2.0-11.0); Neutrophils Absolute Auto 2.78 K/mm3 (1.70-7.20); Neutrophils Percent Auto 53.8 % (50.0-70.0); Platelet Count Result 235 K/mm3 (150-420); Red Blood Count 4.55 M/mm3 (4.20-5.40); Red Cell Distribution Width 12.6 % (11.6-14.4); White Blood Count 5.2 K/mm3 (4.8-10.8)
[2023-10-05 10:55] LABS: Add Urine Microscopic? YES; Appearance Urine Clear (Clear); Bilirubin Urine Negative (Negative); Blood Urine Negative (Negative); Color Urine Light Yellow (Yellow); Glucose Urine UA Negative (Negative); Ketones Urine Negative (Negative); Leukocyte Esterase Ur Trace (Negative); Nitrate Urine Negative (Negative); Protein Urine Negative (Negative); Urobilinogen Urine 0.2 mg/dL (0.2-1.0); pH Urine 7.5 (5.0-8.0)
[2023-10-05 11:16] LABS: Bacteria Urine 1+ /hpf; RBC Urine None seen /hpf (0-2); Squamous Epithelial Cell Urine Moderate /hpf (Few); WBC Urine 0-3 /hpf (0-3)
[2023-10-05 12:28] LABS: Alanine Aminotransferase 32 U/L (14-59); Albumin Level 3.6 g/dL (3.4-5.0); Alkaline Phosphatase 79 U/L (46-116); Amylase 53 U/L (25-115); Anion Gap 8 mmol/L (4-12); Aspartate Amino Transferase 15 U/L (15-37); Bilirubin,Total 0.5 mg/dL (0.00-1.00); Blood Urea Nitrogen 14 mg/dL (7-18); Carbon Dioxide 30 mmol/L (21-32); Chloride 103 mmol/L (98-108); Estimated Glomerular Filt Rate > 60; Glucose 80 mg/dL (70-99); Lipase 51 U/L (16-77); Osmolality Calculated 291 mOsm/kg (285-295); Potassium 4.3 mmol/L (3.5-5.1); Sodium 141 mmol/L (136-145); Thyroid Stimulating Hormone 0.85 uIU/mL (0.36-3.74); Total Protein 6.8 g/dL (6.4-8.2)
== END 2023-10-05 10:40 | disposition home or self-care (01) ==
LOC: CHSLAB 10:41
PROVIDERS: PCP Family Medicine; Visit Provider Family Medicine
DX: R10.9 Unspecified abdominal pain (principal)
CPT/HCPCS: 36415; 80053; 81001; 82150; 83690; 84443; 85025

== ENCOUNTER 2023-10-09 08:23 | Outpatient (CLI) | payer OTHER, SELFPAY ==
--- NOTE | ~2023-10-09 | CT_ITS ---
EXAMINATION: CT abdomen pelvis wo con DATE: 10/09/2023 09:03 INDICATION: Right abdominal pain. TECHNIQUE: Computed tomography (CT) of the abdomen and pelvis was performed without intravenous contr ast. Automated exposure control and iterative reconstruction technique were employed. The dose-length product was 854.21 mGy-cm. COMPARISON: CT abdomen and pelvis 06/15/2022 FINDINGS: The visualized portions of the lung bases demonstrate mild atelectasis. No pleural effusion . The heart size is normal. No pericardial effusion. Breast implants are noted. There is a small slid ing hiatal hernia. There are changes of gastric sleeve procedure. The liver, gallbladder, spleen, ladd creas, adrenal glands, and kidneys are normal. There is no urolithiasis. There are no dilated loops o f bowel. The appendix is normal. There are no pathologically enlarged lymph nodes. There is no free i ntraperitoneal fluid. There is mild thoracic and lumbar spondylosis. IMPRESSION: 1. No specific etiology for the patient's symptoms. Reviewed, dictated and finalized at location A.
== END 2023-10-09 08:24 | disposition home or self-care (01) ==
LOC: CHSIMG 08:24
PROVIDERS: PCP Family Medicine; Visit Provider Family Medicine
DX: R10.31 Right lower quadrant pain (principal); R10.9 Unspecified abdominal pain
CPT/HCPCS: 74176

== ENCOUNTER 2024-06-28 14:26 | Outpatient (CLI) | payer OTHER, SELFPAY ==
--- OUTSIDE RECORDS SUMMARY | 2024-06-28 14:41 | XMS_ITS | Clinical Summary ---
Author Organization [facility] Address [address] [place] [address] Care Team Providers Care Quality Assurance Monitor Body Name Role Phone Ayad Turner MD Primary Care Provide r Tremaine Sosa DPAraceli Unavailable [phone] Allergies Active Allergy Reactions Criticality Noted Date Comments Amoxicillin-Pot Clavulanate Swelling Medium Throat swelling and pistulas Celecoxib Hives Medium Codeine Hives Medium Erythromycin Vomiting Low Severe Vomiting Hydrocodone Hives Medium 04/04/2019 Morphine Unknown Oxaprozin Hives Medium Medications multivitamin-Ca- iron-minerals 18-0.4 mg tabletIndication s:stop for surgery Take 1 tablet by mouth daily Active ibuprofen (ADVIL,MOTRIN) 400 mg tabletIndication s:stop for surgery Take 400 mg by mouth every 6 (six) hours as needed for pain Active calcium carbonate (OS-ANDREA) 650 mg calcium (1,625 mg) tablet Take 1 tablet by mouth daily Active pyridoxine (VITAMIN B-6) 500 mg tablet Take 500 mg by mouth daily Active Active Problems Problem Noted Date Diagnosed Date Plantar fasciitis of left foot 04/08/2019 Knee pain 07/30/2015 Surgical History Surgery Date Site/Laterality Comments KNEE ARTHROSCOPY x 7 LAPAROSCOPY Endometriosis HYSTERECTOMY STOMACH SURGERY GASTRIC Sleeve Medical History Medical History Date Comments PONV (postoperative nausea and vomiting) Family History Medical History Relation Name Comments Scoliosis Daughter Family history of scoliosis - (Added by Conv) Alcohol abuse Father Family history of alcoholism - (Added by Conv) Arthritis Father Family history of arthritis - (Added by TW Conv) Hypertension Father Family history of hypertension - (Added by TW Conv) Lung disease Father Lung trouble - (Added by TW Conv) Scoliosis Father Family history of scoliosis - (Added by TW Conv) Alcohol abuse Mother Family history of alcoholism - (Added by TW Conv) Hypertension Mother Family history of hypertension - (Added by TW Conv) Lung disease Mother Lung trouble - (Added by TW Conv) Scoliosis Mother Family history of scoliosis - (Added by TW Conv) Relation Name Status Comments Daughter Father Mother Social History Tobacco Use Types Packs/Day Years Used Date Smoking Tobacco: Never Smokeless Tobacco: Never Alcohol Use Standard Drinks/Week Comments Yes 0 (1 standard drink = 0.6 oz pur e alcohol) Comments Unknown Sex and Gender Information Value Date Recorded Sex Assigned at Not on file Legal Sex Female 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 Gender Identity Not on file Sexual Orientation Not on file Obstetrics History Last Filed Vital Signs Vital Sign Reading Time Taken Comments Blood Pressure 128/77 04/08/2019 9:00 AM WAREHOUSE UNLOADER Pulse 70 04/08/2019 9:00 AM WAREHOUSE UNLOADER Temperature 36.2 C (97.1 F) 06/04/2020 9:43 AM CDT Respiratory Rate 18 04/08/2019 9:00 AM WAREHOUSE UNLOADER Oxygen Saturation 98% 04/08/2019 9:00 AM WAREHOUSE UNLOADER Inhaled Oxygen Concentration - - Weight 99.8 kg (220 lb) 08/16/2020 9:48 AM CDT Height 157.5 cm (5' 2 ) 08/16/2020 9:48 AM CDT Body Mass Index 40.24 08/16/2020 9:48 AM CDT Plan of Treatment Not [place] [address] [employer] [facility] [employer] HMO/PPO Address: [facility] [id number] [place] [address] [employer] OPEN ACCESS [facility] [id number] [facility] [id number] Member Subscriber Plan / Payer (Ef fective 2020-Present) Name:Carmen Sims Member ID:[id number] Relation to Subscriber:Self Name:Carmen Sims Subscriber ID:[id number] Payer ID:[id number] Type:[employer] HMO/PPO Address: [place] [id number] Care Teams Quality Assurance Monitor Body Relationship Specialty Start Date End Date Ayad Turner MD [address] [place] [address] PCP - General 03/23/19 Tremaine Sosa, KRISTENM [address] [place] [address] Consulting Physician Orthopedic Surgery 04/08/19
--- OUTSIDE RECORDS SUMMARY | 2024-06-28 14:41 | XMS_ITS | Clinical Summary ---
Author Organization [facility] Address [address] [place] [id number] Care Team Providers Care Repeat Photocomposing Machine Operator Name Role Phone Ayad Turner MD Primary Care Provider [phone] Hydraulic Press OperatorEnrrique MD Unavailable [phone] Allergies Active Allergy Reactions Criticality Noted Date Comments Amoxicillin-Pot Clavulanate Anaphylaxis High 01/18/2020 Allergy to clavulanate. Okay with PCN Celecoxib Hives 07/27/2015 Erythromycin Hives 07/27/2015 Morphine Other (see comment) 07/27/2015 Oxaprozin Hives 07/27/2015 Tetracycline Hives 07/27/2015 Medications pantoprazole EC 40 MG tablet Take 1 tablet by mouth 2 (two) times a day. 12/19/2019 Active acetaminophen 500 MG tablet Take 500 mg by mouth every 6 (six) hours as needed for Pain. Active ibuprofen 200 MG tablet Take 200 mg by mouth every 6 (six) hours as needed for Pain. Active traMADol 50 MG tabletIndication s:Acute Pain < 7 Day Supply Take 1 tablet (50 mg total) by mouth every 6 (six) hours as needed for Pain. 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 Family History Medical History Relation Comments No Known Problems Brother No Known Problems Father No Known Problems Maternal Grandfather No Known Problems Maternal Grandmother Hypertension Mother Cancer Paternal Grandfather No Known Problems Paternal Grandmother No Known Problems Sister Relation Status Comments Brother Alive Father Alive Maternal Grandfather Maternal Grandmother Mother Alive Paternal Grandfather Paternal Grandmother Sister Alive Social History Tobacco Use Types Packs/Day Years Used Date Smoking Tobacco: Never Smokeless Tobacco: Never Comments Unknown Sex and Gender Information Value Date Recorded Sex Assigned at Not on file Legal Sex Female 4:52 PM CDT Gender Identity Not on file Sexual Orientation Not on file Last Filed Vital Signs Vital Sign Reading Time Taken Comments Blood Pressure 117/83 09/27/2009 3:58 PM CDT Pulse 79 09/27/2009 3:58 PM CDT Temperature 35.9 C (96.7 F) 01/23/2020 9:54 AM ACCOUNT SUPPORT ANALYST Respiratory Rate 20 09/27/2009 3:58 PM CDT Oxygen Saturation - - Inhaled Oxygen Concentration - - Weight 105.7 kg (233 lb) 02/03/2020 9:48 AM ACCOUNT SUPPORT ANALYST Height 157.5 cm (5' 2 ) 02/03/2020 9:48 AM ACCOUNT SUPPORT ANALYST Body Mass Index 42.62 02/03/2020 9:48 AM ACCOUNT SUPPORT ANALYST Plan of Treatment Health Maintenance Due Date Last Done Comments Colorectal Cancer Screening Colonoscopy (10 Years) 1972 Annual Physical 05/23/1975 Hepatitis C 1990 DTaP, Tdap and Td Vaccines ( 1 - Tdap) 05/23/1991 Hepatitis B Vaccines (1 of 3 - 19+ 3-dose series) 05/23/1991 Mammogram Screening 2012 Pneumococcal Vaccine: 50+ Ye ars (1 of 1 - PCV) 2022 Zoster Vaccines (1 of 2) 2022 COVID-19 Vaccine (1 - 2023-2 5 season) 2023 Meningococcal B Vaccine Aged Out No l onger eligible based on patient's age to complete this topic Meningococcal Vaccine Aged Out No willem ronny eligible based on patient's age to complete this topic RSV Immunizations Under 20 Months Aged Out No longer eligible based on patient's age to complete this topic Insurance [email or web address] OPEN ACCESS [facility] Care Teams Repeat Photocomposing Machine Operator Relationship Specialty Start Date End Date Ayad Turner MD [address] [place] [address] PCP - General FAMILY PRACTICE 01/16/20 Enrrique Dash MD [address] [place] [address] ORTHOPAEDIC SURGERY 01/23/20
--- OUTSIDE RECORDS SUMMARY | 2024-06-28 14:41 | XMS_ITS | Data Portability ---
Author Organization [facility], [facility] ([place]) Address [address] 4th [place] [address] Care Team Providers Care Pulverizer Operator Name Role Phone ASHLEY SANTOYO Primary Care Provider Assessment Encounter Date Assessment Date Assessment LastModified by Organization Details LastModified Time 09/25/2023 09/25/2023 SUBJECTIVE: The patient is an established patient of [facility] I initially saw in 2020. She previously had breast surgery with Dr. Sotelo in the form of a breast augmentation. When I saw her in 2020, she had noted changed of her right breast implant and due to the formation of a capsular contracture I ordered an ultrasound at that time, and she was noted to have bilateral implant rupture. She believes that this occurred at her breast mammogram. In that 3-year period, she has not had any additional breast imaging. She describes herself as somewhat anti-mammogram I believe from this experience and is not having concern regarding the breast cancer screening. She has no family history of breast cancer. The patient has not noted any other change in her history over the interval period. 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 At the last visit, I did discuss with her because the implants are ruptured that this is not feasible to do in the office, but I suggested that we remove the implants with the capsule because of the rupture and perform a mastopexy. She is interested in potentially having a re-augmentation and this would be done at a second stage after the mastopexy. REVIEW OF SYSTEMS: CONST: No fevers or chills. EYES: No vision changes. ENT: No new hearing loss. RESP: No shortness of breath. CV: No chest pain. GI: No nausea, vomiting, diarrhea, or constipation. : No urinary symptoms or frequency. MSK: No new joint pain or joint swelling. SKIN: No itching. PSYCH: No irritability. NEURO: No numbness or tingling sensations. ENDO: No cold or heat intolerance. Reviewed past medical history, surgical history, family history, social history. No changes except as noted. PHYSICAL EXAM: CONST: Alert and oriented. Looks well, no acute distress. EYES: No icterus. ENT: Oral mucosa pink and moist. RESP: Breathing appears normal. No use of accessory muscles. CV: Extremities are warm and well perfused. GI: Abdomen non-distended. MSK: Head: Atraumatic. Normocephalic. No significant edema normal range of motion. SKIN: No jaundice. No rashes or pruritus on exposed areas. PSYCH: Appropriate mood and affect. NEURO: No speech difficulty. BREASTS: The patient has well healed inframammary fold scars. She has a waterfall deformity bilaterally. The implant on the right has a grade 3 capsule and the left has grade 2. She has no discrete palpable masses. Reviewed pertinent diagnostic tests, lab work, and imaging. These were reviewed with the patient. ASSESSMENT AND PLAN: The patient has bilateral ruptured implants. I suggested to her that we remove the implants because they are ruptured, and this would require removal of the capsule as well. Because of the amount of work that would be done on the tissue, I would suggest against placing new implants at the same time but we could perform a lift and then stage an augmentation 3 months later. We did spend some time discussing breast imaging. I highly encourage her to have a screening mammogram; however, she would rather not do this. I explain to her that this would be best practice and standard of care to have up to date mammogram prior to proceeding with surgery and she voiced understanding and specifically declines this. I explained that I will send any breast tissue that is removed to pathology. The patient is interested in pursuing proceeding with surgery, and we can get her a quote updated and proceed with that in mind. I appreciate the opportunity to participate in the care of your patients. Should you have any questions or concerns about this evaluation or management please feel free to call my office to discuss them with me. I will be sure to keep you informed of any subsequent developments in care. cbg [email or web address] Not available 09/26/2023 05:30:10 Plan of Treatment Reminders Order Date Submit Date Provider Last Modified By Organization Details Last Modified Time Details Appointments None record ed. Lab None record ed. Referral None record ed. Procedures None record ed. Surgeries None record ed. Imaging None record ed. Medication Orders None record ed. Patient TargetsNo targets recorded. Patient InstructionsNo instructions recorded. Reason for Referral None Reported. Problems Name Problem SNOMED Code Status Onset Date Resolution Date Notes Provider Name and Address Organization Details Recorded Time Mechanical complication of breast prosthesis 119700501 [facility] Capsular contracture of breast 568374196 Active 2023 [facility] 15:05:13 Problem Notes None recorded. Procedures Surgical History Date Name Laterality Status Provider Name and Address Organization Details Recorded Time 06/17/19 18 Date of Last Mammogram completed Not Available Health Note 09/18/2023 12:46:19 06/17/19 15 Date of Last Pap Smear completed Not Available Health Note 09/18/2023 12:46:20 Colonoscopy with biopsy completed Not Available Health Note 09/18/2023 12:46:17 Partial hysterectomy completed Not Available Health Note 09/18/2023 12:46:17 Imaging Results None recorded. Procedure Notes None recorded. Medical Equipment None Reported. Allergies Allergen ID Allergen Name Allergen Category Reaction Reaction Severity Criticality Documentation Date Start Date Code Code System Note Provider Name and Address Organization Details Recorded Time 8633634 acetamino phen / hydrocodo ne medicatio n Not available Not available Not available 03/18/20232012 01665 2 RxNorm Not Available [facility] 4 04:14:04 0643781 morphine sulfate medicatio n Not available Not available Not available 03/18/20232012 90816 RxNorm Not Available [facility] 4 04:14:04 9254837 oxaprozin medicatio n Not available Not available Not available 03/18/20232012 75551 RxNorm Not Available [facility] 4 04:14:04 0266461 Augmentin medicatio n Not available Not available Not available 03/18/20232012 37770 2 RxNorm Not Available [facility] 4 04:14:04 5150021 erythromy aiyana medicatio n Not available Not available Not available 03/18/20232012 4053 RxNorm Not Available [facility] 4 04:14:04 6961285 codeine medicatio n Not available Not available Not available 03/18/20232012 2670 RxNorm Not Available [facility] 4 04:14:05 4500457 celecoxib medicatio n Not available Not available Not available 11/25/20232012 71616 7 RxNorm Not Available [facility] 4 19:17:08 993102 doxycycli ne monohydra te medicatio n anaphylax is Not available Not available 03/16/20232020 2 RxNorm React ion: Tongu e Swell ing; Rash; Not Available [facility] 4 21:32:19 Medications Name Sig Start Date Stop Date Status Note LastModified by Organization Details LastModified Time pantoprazole 40 mg tablet,delay ed release TAKE 1 TABLET BY MOUTH TWICE DAILY active Not Available Not Available No t Available tobramycin 0.3 %-dexamethas one 0.1 % eye drops,suspen tiffanie INSTILL 1 DROP INTO LEFT EYE 4 TIMES DAILY FOR 5-7 DAYS DIRECTED active Not Available Not Available No t Available Wegovy 2.4 mg/0.75 mL subcutaneous pen injector INJECT 2.4 MG SUBCUTANEOU SLY ONCE WEEKLY active Not Available Not Available No t Available Vitals Date Recorded Body height Body mass index (BMI) Body weight Provider Name and Address Organization Details Last Updated DateTime 09/25/2023 157.48 cm 36.8 kg/m2 85845.07 g Madelin Enamorado [facility] 09/25/2023 12:03:23 Social History Question Answer Notes LastModified by Organizat ion Details LastModified Time Do You Have An Advance Directive? Yes [email or web address] Information not available 09/18/2023 What Is Your Level Of Caffeine Consumption? Occasional [email or web address] Information not available 09/18/2023 What Is Your Code Status? Full Code [email or web address] Information not available 09/18/2023 How Many Times Per Week Do You Exercise? Less Than 1 Time Per Week [email or web address] Information not available 09/18/2023 Do You Have A Medical Power Of Steam Brush Operator? Yes [email or web address] Information not available 09/18/2023 What Was The Date Of Your Most Recent Tobacco Screening? 09/25/2023 [email or web address] Information not available 09/18/2023 What Is Your Relationship Status? Domestic Partner [email or web address] Information not available 09/18/2023 Sex: Unknown Functional Status Question Answer Note LastModified by Organizat ion Details LastModified Time How many times per week do you consume alcohol? Less than 1 time per week [email or web address] Information not available 09/18/2023 Do you use any illicit or recreational drugs? No [email or web address] Information not available 09/18/2023 What is your level of alcohol consumption? Occasional [email or web address] Information not available 09/18/2023 Are you currently employed? 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 Occasional [email or web address] Information not available 09/18/2023 Mental Status None recorded. Family History Relationship Description Onset Age of this Age Resolved Age Notes LastModified by Organization Details LastModified Time Mother Asthma [email or web address] Not available 12:46:16 Mother Chronic obstructive pulmonary disease [email or web address] Not available 2023 12:46:16 Mother Hypertensive disorder [email or web address] Not available 2023 12:46:16 Father Chronic obstructive pulmonary disease [email or web address] Not available 2023 12:46:16 Medical History Condition Response Diabetes N Anxiety Disorder N Bleeding Disorder N Attention-deficit Hyperactivity Disorder N High Blood Pressure N Arthritis N Hyperlipidemia N Cancer N Stroke N Thyroid Problems N Asthma N Depression N COPD N Anemia N Seizures N Heart Disease N Fibromyalgia N Osteoporosis N Kidney Disease N Gynecological History Statement/Question Response Abnormal Pap Y Date of Last Pap Smear 06/16/2014 Age at Menarche 13 Current Control Method Hysterectom y Date of Last Mammogram 06/16/2017 Obstetrics History GPAL:G 0 P 0 0 0 0 Past Encounters Encounter ID Performer Location Encounter Start Date Encounter Closed Date Diagnosis/Indication Diagnosis SNOMED-CT Code Diagnosis ICD10 Code Diagnosis Note [id number] Sana Kwon MD [facility] [address] [place] [address] 09/25/2023 11:48:05 09/25/2023 16:02:18 Mechanical complication of breast prosthesis 016192201 T85.49XA Additional diagnosis detail: Other mechanical complicati on of breast prosthesis and implant, initial encounter Capsular c ontracture of breast 306432203 T85.44XA Additional diagnosis detail: Capsular contractur e of breast implant, initial encounter Health Concerns Section Related Observation LastModified by Organization Detai ls LastModified Time None Recorded Concern Status LastModified by Organization Details LastModified Time None Recorded Advance Directives Directive Y: Payers Insurance Date Sequence Insurance Name Policy Number Policy Stephens Covered Member ID Stephens Member ID Guarantor Name 10/07/2023 COSMETIC SELF PAY Dotty A Blank [id number] Dotty A Blank 02/17/2024 1 [facility] [employer] [id number] Dotty A Blank [id number] I Dotty A Blank OBGyn Episode No OBEpisode recorded.
--- OUTSIDE RECORDS SUMMARY | 2024-06-28 14:41 | XMS_ITS | Encounter Summary ---
Author Organization [facility] Address [address] [place] [address] Care Team Providers Care Shrimp Peeling Machine Operator Name Role Phone Ayad Turner MD Primary Care Provider [phone] Enrrique Dash MD Unavailable [phone] Encounter Details Date Type Department Care Team (Late st Contact Info) Description 07/24/2018 Abstract SFL CONVERSION [address] [place] [address] , Generic ConversionMD Social History Tobacco Use Types Packs/Day Years Used Date Smoking Tobacco: Never Comments Unknown Sex and Gender Information Value Date Recorded Sex Assigned at Not on file Legal Sex Female 4:52 PM CDT Gender Identity Not on file Sexual Orientation Not on file documented as of this encounter Plan of Treatment Not on file documented as of this encounter Visit Diagnoses Not on filedocumented in this encounter Care Teams Shrimp Peeling Machine Operator Relationship Specialty Start Date End Date Ayad Turner MD [address] [place] [address] PCP - General FAMILY PRACTICE 01/16/20 Enrrique Dash MD [address] [place] [address] ORTHOPAEDIC SURGERY 01/23/20 documented as of this encounter
--- OUTSIDE RECORDS SUMMARY | 2024-06-28 14:41 | XMS_ITS | Encounter Summary ---
Author Organization [facility] Address [address] [place] [address] Phone Care Team Providers Care Coat Checker Name Role Phone Ayad Turner MD Primary Care Provide r Tremaine Sosa DPM Unavailable [phone] Encounter Details Date Type Department Care Team ([facility] st Contact Info) Description 04/12/2020 Orders Only [facility] [address] [place] [address] Scanning, Provider Social History Tobacco Use Types Packs/Day Years Used Date Smoking Tobacco: Never Smokeless Tobacco: Never Alcohol Use Standard Drinks/Week Comments Yes 0 (1 standard drink = 0.6 oz pur e alcohol) Comments Unknown Sex and Gender Information Value Date Recorded Sex Assigned at Not on file Legal Sex Female 10:17 AM ELECTRICAL ESTIMATOR Gender Identity Not on file Sexual Orientation Not on file documented as of this encounter Plan of Treatment Not on file documented as of this encounter Procedures Procedure Name Priority Date/Time Associated Diagnosis Comments SCAN - RADIOLOGY/IMAGING 04/12/2020 documented in this encounter Results * SCAN - RADIOLOGY/IMAGING (04/12/2020) Anatomical Region Laterality Modality Other us Provider Scanning Final Result documented in this encounter Visit Diagnoses Not on filedocumented in this encounter Care Teams Coat Checker Relationship Specialty Start Date End Date Ayad Turner MD [address] [place] [address] PCP - General 03/23/19 Tremaine Sosa, BRENNA [address] [place] [id number] Consulting Physician Orthopedic Surgery 04/08/19 documented as of this encounter
--- OUTSIDE RECORDS SUMMARY | 2024-06-28 14:41 | XMS_ITS | Encounter Summary ---
Author Organization [facility] Address [address] [place] [address] Care Team Providers Care Medical Registrar Name Role Phone Ayad Turner MD Primary Care Provider [phone] Enrrique Dash MD Unavailable [phone] Encounter Details Date Type Department Care Team (Late st Contact Info) Description 05/02/2017 Abstract [facility] CONVERSION [address] [place] [address] , Generic ConversionMD Social History Tobacco Use [...] on filedocumented in this encounter Care Teams Medical Registrar Relationship Specialty Start Date End Date Ayad Turner MD [address] [place] [address] PCP - General FAMILY PRACTICE 01/16/20 Enrrique Dash MD [address] [place] [address] ORTHOPAEDIC SURGERY 01/23/20 documented as of this encounter
--- OUTSIDE RECORDS SUMMARY | 2024-06-28 14:41 | XMS_ITS | Referral Summary ---
Author Organization [facility] Address [address] [place] [address] Care Team Providers Care Film Splicer Name Role Phone Ayad Turner MD Primary Care Provide r Tremaine Sosa DPAraceli Unavailable [phone] Allergies Active Allergy Reactions Criticality Noted Date [...] of left foot 04/08/2019 Knee pain 07/30/2015 Social History Tobacco Use Types Packs/Day Years Used Date Smoking Tobacco: Never Smokeless Tobacco: Never Alcohol Use Standard Drinks/Week Comments Yes 0 (1 standard drink = 0.6 oz pur e alcohol) Comments Unknown Sex and Gender Information Value Date Recorded Sex Assigned at Not on file Legal Sex Female 10:17 AM PUBLIC HEALTH SANITARIAN TECHNICIAN Gender Identity Not on file Sexual Orientation Not on file Last Filed Vital Signs Vital Sign Reading Time Taken Comments Blood Pressure 128/77 04/08/2019 9:00 AM PUBLIC HEALTH SANITARIAN TECHNICIAN Pulse 70 04/08/2019 9:00 AM PUBLIC HEALTH SANITARIAN TECHNICIAN Temperature 36.2 C (97.1 F) 06/04/2020 9:43 AM CDT Respiratory Rate 18 04/08/2019 9:00 AM PUBLIC HEALTH SANITARIAN TECHNICIAN Oxygen Saturation 98% 04/08/2019 9:00 AM PUBLIC HEALTH SANITARIAN TECHNICIAN Inhaled Oxygen Concentration - - Weight 99.8 kg (220 lb) 08/16/2020 9:48 AM CDT Height 157.5 cm (5' 2 ) 08/16/2020 9:48 AM CDT Body Mass Index 40.24 08/16/2020 9:48 AM CDT Plan of Treatment Not on file Insurance [facility] Acquaintable OPEN ACCESS Member Subscriber Plan / Payer (Ef fective 2020-Present) Name:Carmen Sims Member ID:Not on file Relation to Subscriber:Not on file Subscriber ID:Not on file Payer ID:[id number] Group ID:Not on file Type:[employer] Address: [address] [address] [facility] [address] [facility] [address] Care Teams Film Splicer Relationship Specialty Start Date End Date Ayad Turner MD [address] [place] [address] PCP - General 03/23/19 Tremaine Sosa, DPAraceli [address] [place] [address] Consulting Physician Orthopedic Surgery 04/08/19
[2024-06-28 14:44] LABS: Hematocrit 43.1 % (35.0-49.0); Hemoglobin 13.8 g/dL (12.0-15.0); Mean Corpuscular Hemoglobin 29.8 pg (27.0-31.0); Mean Corpuscular Volume 93.1 fL (78.0-102.0); Mean Platelet Volume 9.5 fl (9.2-11.8); Platelet Count Result 257 K/mm3 (150-420); Red Blood Count 4.63 M/mm3 (4.20-5.40); Red Cell Distribution Width 12.7 % (11.6-14.4); White Blood Count 5.7 K/mm3 (4.8-10.8)
[2024-06-28 15:09] LABS: Alanine Aminotransferase 30 U/L (6-35); Albumin Level 4.6 g/dL (3.5-5.1); Alkaline Phosphatase 66 U/L (38-126); Anion Gap 7 mmol/L (4-12); Aspartate Amino Transferase 28 U/L (14-36); Bilirubin,Total 0.5 mg/dL (0.2-1.3); Blood Urea Nitrogen 14 mg/dL (7-17); Calcium 9.5 mg/dL (8.4-10.2); Carbon Dioxide 29 mmol/L (22-30); Chloride 104 mmol/L (98-107); Estimated Glomerular Filt Rate > 60; Glucose 86 mg/dL (65-110); Iron 57 ug/dL (37-170); Osmolality Calculated 289 mOsm/kg (285-295); Potassium 4.3 mmol/L (3.4-5.0); Sodium 140 mmol/L (137-145); Total Protein 7.3 g/dL (6.3-8.2)
[2024-06-28 16:17] LABS: Folic Acid 7.4 ng/mL (2.76->20); Vitamin B12 > 1000.0 pg/mL (239-931)
[2024-06-30 03:33] LABS: Vitamin D 25 Hydroxy 29 ng/mL (30-100)
[2024-07-04 10:24] LABS: Vitamin B1 19 nmol/L (8-30)
== END 2024-06-28 14:27 | disposition home or self-care (01) ==
PROVIDERS: PCP Family Medicine; Visit Provider Surgery
DX: R63.4 Abnormal weight loss (principal); R53.82 Chronic fatigue, unspecified; L65.9 Nonscarring hair loss, unspecified; E66.01 Morbid (severe) obesity due to excess calories; D64.9 Anemia, unspecified; K91.2 Postsurgical malabsorption, not elsewhere classified; Z98.84 Bariatric surgery status; Z13.818 Encounter for screening for other digestive system disorders
CPT/HCPCS: 36415; 80053; 82306; 82607; 82728; 82746; 83540; 84425; 84443; 85027

== ENCOUNTER 2025-01-16 16:09 | Outpatient (CLI) | payer OTHER, SELFPAY ==
--- NOTE | ~2025-01-16 | XR_ITS ---
XR lumbar spine 2-3V Indication: PAIN AFTER FALL Comparison: None Findings: The vertebral heights are intact. No fracture or subluxation. Moderate severe loss of disc height at L4-5 and L5-S1. Soft tissues unremarkable Impression: No acute abnormality. Reviewed, dictated and finalized at location P. ER INFLATED PAD Impression: No acute abnormality.
--- NOTE | ~2025-01-16 | XR_ITS ---
EXAMINATION: XR pelvis 1-2V, 01/16/2025 16:45 PHOTOGRAPH EDITOR HISTORY: PAIN AFTER FALL COMPARISON: No comparisons available. Findings: No acute fracture or malalignment. No significant degenerative changes. Soft tissues unremarkable. Impression: No acute fracture or malalignment. Reviewed, dictated and finalized at location P. OGRAPH EDITOR Impression: No acute fracture or malalignment.
--- OUTSIDE RECORDS SUMMARY | 2025-01-16 16:16 | XMS_ITS | Encounter Summary ---
Author Organization [facility] Address [address] [place] [address] Care Team Providers Care Microsoft Bi Architect Name Role Phone Ayad Turner MD Primary Care Provider Enrrique Dash MD Unavailable [phone] Encounter Details Date Type Department Care Team (Late st Contact Info) Description 07/24/2018 Abstract SFL CONVERSION [address] [place] [address] , Generic ConversionMD Social History [...] on filedocumented in this encounter Care Teams Microsoft Bi Architect Relationship Specialty Start Date End Date Ayad Turner MD [address] [place] [address] PCP - General FAMILY PRACTICE 01/16/20 Enrrique Dash MD [address] [place] [address] ORTHOPAEDIC SURGERY 01/23/20 documented as of this encounter
--- OUTSIDE RECORDS SUMMARY | 2025-01-16 16:16 | XMS_ITS | Clinical Summary ---
Author Organization [facility] Address [address] [place] [address] Care Team Providers Care Trim Operator Name Role Phone Ayad Turner MD Primary Care Provide r Tremaine Soas DPAraceli Unavailable [phone] Allergies Active Allergy Reactions Criticality Noted Date [...] disease Father Lung trouble - (Added by Conv) Scoliosis Father Family history of scoliosis [...] on file Legal Sex Female 10:17 AM BRASS FINISHER Gender Identity Not on file Sexual Orientation Not on file Last Filed Vital Signs Vital Sign Reading Time Taken Comments Blood Pressure 128/77 04/08/2019 9:00 AM BRASS FINISHER Pulse 70 04/08/2019 9:00 AM BRASS FINISHER Temperature 36.2 C (97.1 F) 06/04/2020 9:43 AM CDT Respiratory Rate 18 04/08/2019 9:00 AM BRASS FINISHER Oxygen Saturation 98% 04/08/2019 9:00 AM BRASS FINISHER Inhaled Oxygen Concentration - - Weight 99.8 kg (220 lb) 08/16/2020 9:48 AM CDT Height 157.5 cm (5' 2) 08/16/2020 9:48 AM CDT Body Mass Index 40.24 08/16/2020 9:48 AM CDT Plan of Treatment Health Maintenance Due Date Last Done Comments Breast Cancer Screening-Mammogram 1972 Colon Cancer Screening-Colonoscopy 1972 Depression Screening 1972 Hepatitis C Screening 1972 DTaP/Tdap/Td Vaccine (1 - Tdap) 05/23/1983 Hepatitis B Screening 1990 Regular Well Visit/Exam 18-64 1990 Covid-19 Vaccine (2024-2 6 season) 2024 01/22/2021, 03/29/2020, 03/02/2020 Influenza Vaccine (#1) 2024 , 12/21/2019, 10/23/2015 Zoster Vaccine Completed 03/25/2024, 10/05/2023 Pneumococcal vaccine <65 Aged Out No longer eligible based on patient's age to complete this topic Insurance [employer] [facility] [employer] [facility] [id number] [facility] [address] Care Teams Trim Operator Relationship Specialty Start Date End Date Ayad Turner MD [address] [place] [address] PCP - General 03/23/19 Tremaine Sosa, DPM [address] [place] [address] Consulting Physician Orthopedic Surgery 04/08/19
--- OUTSIDE RECORDS SUMMARY | 2025-01-16 16:16 | XMS_ITS | Clinical Summary ---
Author Organization [facility] Address [address] [place] [address] Care Team Providers Care Mirror Framer Name Role Phone Ayad Turner MD Primary Care Provider [phone] BrooklynEnrrique MD Unavailable Allergies Active Allergy Reactions Criticality Noted Date [...] 35.9 C (96.7 F) 01/23/2020 9:54 AM MEDICAL RECORDS LIBRARY PROFESSOR Respiratory Rate 20 09/27/2009 3:58 PM CDT Oxygen Saturation - - Inhaled Oxygen Concentration - - Weight 105.7 kg (233 lb) 02/03/2020 9:48 AM MEDICAL RECORDS LIBRARY PROFESSOR Height 157.5 cm (5' 2) 02/03/2020 9:48 AM MEDICAL RECORDS LIBRARY PROFESSOR Body Mass Index 42.62 02/03/2020 9:48 AM MEDICAL RECORDS LIBRARY PROFESSOR Plan of Treatment Health Maintenance Due Date [...] of 2) 2022 COVID-19 Vaccine (1 - 2024-2 6 season) 2024 Influenza Adult (#1) 2024 Hepatitis A Vaccines Aged Out No long er eligible based on patient's age to complete this topic Meningococcal B Vaccine Aged Out No l onger eligible based on patient's age to complete this topic Meningococcal Vaccine Aged Out No willem ronny eligible based on patient's age to complete this topic RSV Immunizations Under 20 Months Aged Out No longer eligible based on patient's age to complete this topic Insurance [employer] OPEN ACCESS [facility] Care Teams Mirror Framer Relationship Specialty Start Date End Date Ayad Turner MD [address] [place] [address] PCP - General FAMILY PRACTICE 01/16/20 Enrrique Dash MD [address] [place] [address] ORTHOPAEDIC SURGERY 01/23/20
--- OUTSIDE RECORDS SUMMARY | 2025-01-16 16:16 | XMS_ITS | Encounter Summary ---
Author Organization [facility] Address [address] [place] [address] Phone Care Team Providers Care District Wire Chief Name Role Phone Ayad Turner MD Primary Care Provide r Tremaine Sosa DPM Unavailable [phone] Encounter Details Date Type Department Care Team ([facility] st Contact Info) Description 04/12/2020 Orders Only [facility] [address] [place] [address] Scanning, Provider Social History Tobacco Use Types Packs/Day Years Used Date Smoking Tobacco: Never Smokeless Tobacco: Never Alcohol Use Standard Drinks/Week Comments Yes 0 (1 standard drink = 0.6 oz pur e alcohol) Comments Unknown Sex and Gender Information Value Date Recorded Sex Assigned at Not on file Legal Sex Female 10:17 AM BASKET WEAVER Gender Identity Not on file Sexual Orientation [...] on filedocumented in this encounter Care Teams District Wire Chief Relationship Specialty Start Date End Date Ayad Turner MD [address] [place] [address] PCP - General 03/23/19 Tremaine Sosa, BRENNA [address] [id number] Consulting Physician Orthopedic Surgery 04/08/19 documented as of this encounter
[2025-01-16 16:46] LABS: Hematocrit 41.0 % (35.0-49.0); Hemoglobin 13.5 g/dL (12.0-15.0); Mean Corpuscular HGB Conc 32.9 g/dL (32-36); Mean Corpuscular Hemoglobin 30.5 pg (27.0-31.0); Mean Corpuscular Volume 92.6 fL (78.0-102.0); Platelet Count Result 253 K/mm3 (150-420); Red Blood Count 4.43 M/mm3 (4.20-5.40); White Blood Count 4.8 K/mm3 (4.8-10.8)
[2025-01-16 16:59] LABS: Alanine Aminotransferase 26 U/L (6-35); Albumin Level 4.8 g/dL (3.5-5.1); Alkaline Phosphatase 75 U/L (38-126); Anion Gap 11 mmol/L (4-12); Aspartate Amino Transferase 28 U/L (14-36); Bilirubin,Total 0.3 mg/dL (0.2-1.3); Blood Urea Nitrogen 12 mg/dL (7-17); Calcium 9.6 mg/dL (8.4-10.2); Carbon Dioxide 29 mmol/L (22-30); Chloride 104 mmol/L (98-107); Estimated Glomerular Filt Rate > 60; Glucose 83 mg/dL (65-110); Iron 75 ug/dL (37-170); Osmolality Calculated 296 mOsm/kg (285-295); Potassium 4.1 mmol/L (3.4-5.0); Sodium 144 mmol/L (137-145); Total Protein 7.6 g/dL (6.3-8.2)
[2025-01-16 17:29] LABS: Thyroid Stimulating Hormone Reflex 3.040 uIU/mL (0.465-4.68)
[2025-01-16 17:35] LABS: Ferritin 79.20 ng/mL (11.1-264)
[2025-01-16 18:06] LABS: Vitamin B12 > 1000.0 pg/mL (239-931)
== END 2025-01-16 16:10 | disposition home or self-care (01) ==
LOC: CHSLAB 16:14
PROVIDERS: PCP Family Medicine; Visit Provider Surgery
DX: R10.20 Pelvic and perineal pain unspecified side (principal); M54.50 Low back pain, unspecified; R63.4 Abnormal weight loss; R53.82 Chronic fatigue, unspecified; E66.01 Morbid (severe) obesity due to excess calories; D64.9 Anemia, unspecified; K91.2 Postsurgical malabsorption, not elsewhere classified; Z98.84 Bariatric surgery status; Z13.818 Encounter for screening for other digestive system disorders
CPT/HCPCS: 36415; 72100; 72170; 80053; 82306; 82607; 82728; 82746; 83540; 84443; 85027